=== PATIENT | female | born 1940 | race Caucasian/White ===

== ENCOUNTER 2018-09-29 02:03 | Outpatient (CLI) | payer MEDICARE, MEDICAID, SELFPAY ==
[2018-09-29 11:27] LABS: Hemoglobin A1C 7.8 % (4.5-6.2)
[2018-09-29 11:33] LABS: ALT 35 U/L (12-78); AST 42 U/L (15-37); Alkaline Phosphatase 81 U/L (46-116); Anion Gap 8.4 mmol/L (3-11); BUN 13 mg/dL (7-18); Bilirubin, Total 0.2 mg/dL (0.2-1.0); CO2 29.6 mmol/L (21.0-32.0); CREATININE 1.07 mg/dL (0.55-1.02); Calcium 9.3 mg/dL (8.5-10.1); Chloride 103 mmol/L (98-107); Cholesterol 203 mg/dL (50-200); Glucose 186 mg/dL (70-100); HDL Cholesterol 34 mg/dL (40-60); LDL CHOLESTEROL 123 mg/dL (<100); Potassium 4.3 mmol/L (3.5-5.1); Sodium 141 mmol/L (136-145); Total Protein 6.4 g/dL (6.4-8.2); Triglyceride 246 mg/dL (30-150)
== END 2018-09-29 02:23 ==
PROVIDERS: PCP Family Medicine; Visit Provider Family Medicine
DX: R07.9 Chest pain, unspecified (principal); E11.9 Type 2 diabetes mellitus without complications; R78.5 Finding of other psychotropic drug in blood; I10 Essential (primary) hypertension
CPT/HCPCS: 36415; 80053; 80061; 83721; 83036

== ENCOUNTER 2018-10-24 17:35 | Outpatient (REF) | payer MEDICARE, MEDICAID, SELFPAY ==
--- NOTE | 2018-10-24 16:30 | SKI_PTH ---
PATIENT: Ana Medel LOC: [facility] U#:[id number] AGE/SX: 78/F ROOM: RE10/24/[address]: Kenton Tillman MD : 1940 BED: DIS: 10/24/2018 SPEC #: [id number] RECD: 10/25/18 12:51 STATUS: ANITA REElizabeth #: [id number] JESSICA: 10/24/18 16:[address]: Kenton Tillman DEPT: Surgical Specimen RECD BY: Renetta Rojas Tissues: 1 - SKIN BIOPSY(SHAVE/PUNCH) Procedures: SKIN LEVEL 4 Comments: [id number]
== END 2018-10-24 17:55 ==
LOC: LBN 17:35
PROVIDERS: PCP Family Medicine; Visit Provider Family Medicine
DX: C44.629 Squamous cell carcinoma of skin of left upper limb, including shoulder (principal)
CPT/HCPCS: 88305

== ENCOUNTER 2019-01-31 15:47 | Emergency (ER) | payer MEDICARE, MEDICAID, SELFPAY ==
[2019-01-31 16:00] VITALS: BP 158/71; PULSE 68; RESP 16; TEMP 37; O2SAT 97
--- NOTE | 2019-01-31 16:08 | DI.RAD_ITS ---
SYMPTOM/DIAGNOSIS: SOB, ANTERIOR RT SHOULDER PAIN PA AND LATERAL CHEST: No localized infiltrate is demonstrated. There is some questionable increased density in the right infrahilar region. The lungs are otherwise unremarkable. There is no pleural effusion. The heart is not enlarged. No acute bony abnormality is demonstrated. SUMMARY: The questionable increased density in the right infrahilar region could conceivably represent an early pneumonitis. The examination is otherwise unremarkable. RIGHT SHOULDER: There is evidence of DJD with articular sclerosis and periarticular hypertrophic spurring. A small region of apparent calcification is identified adjacent to the greater tuberosity of the humerus. There is no evidence of an acute fracture or dislocation.
--- NOTE | 2019-01-31 16:14 | ED.GENADUL_ITS ---
Discharge Plan Disposition Patient Disposition: HOME Condition: Stable Discharge Details Chief Complaint: SOB Clinical Impression: Shortness of breath, Arthritis of right shoulder region Primary Care Provider: Kenton Tillman ED Provider: Aquiles Cormier Dufur Meds and New Rx's Prescriptions: New levofloxacin 750 mg tablet 750 mg PO DAILY Qty: 7 RF: 0 No Action Eliquis 5 mg tablet 5 mg PO BID Qty: 180 RF: 3 metformin 500 mg tablet 500 mg PO BID 90 Days Qty: 180 RF: 3 metoprolol succinate 50 mg tablet extended release 24 hr 50 mg PO DAILY Qty: 90 RF: 3 simvastatin [Zocor] 40 mg tablet 40 mg PO HS Qty: 90 RF: 4 trazodone 100 mg tablet 100 mg PO HS Qty: 90 RF: 12 ipratropium bromide 0.02 % solution 3 ml Inhalation ONCE Qty: 3 RF: 0 glipizide 5 mg tablet extended release 24hr 10 mg PO DAILY Qty: 90 RF: 12 benzonatate 200 mg capsule 200 mg PO TID PRN (Reason: cough) Qty: 30 RF: 0 levofloxacin 500 mg tablet 500 mg PO DAILY Qty: 7 RF: 0 albuterol sulfate [Ventolin HFA] 90 mcg/actuation HFA aerosol inhaler 1 - 2 puff IH Q4H PRN (Reason: shortness of breath or wheezing) Qty: 8.5 RF: 0 Aerochamber MV spacer .ROUTE .MEDSUPPLY Qty: 1 RF: 0 TEST STRIPS 1 EACH strip 1 ea Miscellaneous TID Qty: 300 RF: 4 acetaminophen [Tylenol Extra Strength] 500 MG tablet 2 tab PO Q4H PRN RF: 0 cpap RF: 0 Blood Glucose Test 1 EACH strip 1 ea Miscellaneous TID Qty: 400 RF: 12 lancets 1 EACH misc 1 ea Miscellaneous TID Qty: 300 RF: 4 omeprazole 20 MG capsule,delayed release(DR/EC) 20 mg PO DAILY Qty: 90 RF: 4 losartan [Cozaar] 100 mg tablet 100 mg PO QAM Qty: 90 RF: 3 metoclopramide HCl 10 mg tablet 10 mg PO QID Qty: 120 RF: 5 furosemide 20 mg tablet 20 mg PO DAILY Qty: 90 RF: 12 fluoxetine 20 mg capsule 20 mg PO DAILY Qty: 90 RF: 4 sennosides [Senna Lax] 8.6 mg tablet 8.6 - 17.2 mg PO BID PRN (Reason: constipation) Qty: 180 RF: 0 tolterodine [Detrol LA] 4 mg capsule,extended release 24hr 4 mg PO DAILY Qty: 90 RF: 12 multivitamin 1 EACH capsule 1 cap PO DAILY RF: 0 Discharge Instructions Additional Instructions: Star taking 40mg of lasix daily. Take 20mg when you get home and then 40mg every morning If you develop a severe worsening cough with fever you can fill the antibiotic prescription return to the emergency department if you feel you are becoming more ill, more short of breath or new symptoms such as chest pain/pressure Medical Decision Making 78 yo female with hx of afib on eliquis, leg edema on lasix, dm, htn, who comes in with chief complaint of shortness of breath. She was tx'd with levofloxacin for pna diagnosed clinically at his pcp's office in the beginning of this month. her cough she had cleared but she continues to have shortness of breath. She states she has also had increased leg swelling. Denies calf pain and denies any chest pain or pressure. She is in no distress on exam speaking in full sentences. She has no hypoxia, tachycardia, and on exam has mild crackles at the bases otherwise clear lungs and no murmurs. Will obtain ecg and troponin to evaluate for possible nstemi but unlikely given lack of chest pain. no hypoxia, tachycardia or evidence of dvt so doubt PE .Will also obtain xray to eval for infiltrate vs edema. She has had pain in her right shoulder for months and states she had a previous rotator cuff repair. Has full rom and pain with palpation to the anterior shoulder, no warmth or swelling or redness and no fevers so doubt septic joint. will xray to eval for possible pathological fx pt remains stable, on shoulder xray has no acute findings, does have chronic changes that I advised her to f/u with pcp about for mri if needed. Her labs show no acute findings, xray unclear if it shows pna or not. She has no productive cough and no fevers so do not feel abx indicated at this time. I feel this could be related to mild volume overload given elevated probnp and pitting leg edema. She is hd stable for outpatient management. I am going to have her increase her lasix to 40mg daily from 20mg and she will f/u with her pcp within a week and return if worsening family requested to have a prescription for an antibiotic in case she does develop symptoms of a pna, will provide this but gave them clera instructions on when to fill it and that she should be seen if she does fill it Differential Diagnosis chf, acs, pulmonary edema, bronchitis Imaging Data Radiologic Study: Attestation: I personally reviewed and interpreted this imaging study as follows: Imaging: X-Ray Radiologist's impression: IMPRESSION: 1. 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 2. Concern for chronic acromioclavicular injury. 3. No acute skeletal pathology is grossly noted. 4. Consider further evaluation with MRI if patient continues with clinical symptoms. Radiologic Study #2: Attestation: I personally reviewed and interpreted this imaging study as follows: Imaging: X-Ray Radiologist's impression: IMPRESSION: Mild haziness in the right infrahilar region could be related to crowding of bronchovascular structures versus developing airspace disease in the appropriate clinical setting. There is mild segmental bronchial wall thickening of the bilateral infrahilar regions, in which acute bronchitis is a possibility as well. Lab Data Lab results reviewed: Yes I reviewed the patient's lab results. ECG Data Attestation: I personally reviewed and interpreted this ECG (s) as follows: Prior ECG tracings: available for review Interpretation: sinus rhythm, rate of 65, left axis anterior fasciuclar block, no acute st t wave ischemic changes HPI General Mode of arrival: ambulatory . Date/Time Provider Initiated Documentation: 01/31/19 16:02 . Limitations to Documentation: no limitations . Information obtained by: patient . History of Present Illness 78 year old F presents to the emergency department with the chief complaint of shoft of breath, described as mild, Patient started experiencing this week(s) (2) and it has been constant. Rest improves symptom(s), Movement worsens symptoms . Patient did receive the following treatments prior to arrival, none Related Data Home Medications Medication Instructions Recorded Confirmed multivitamin 1 cap PO DAILY 03/13/14 01/31/19 acetaminophen [Tylenol Extra 2 tab PO Q4H PRN 04/03/14 01/31/19 Strength] blood sugar diagnostic [Blood #400 strip 01/25/18 01/18/19 Glucose Test Strip] lancets #300 ea 01/25/18 01/18/19 omeprazole 20 mg PO DAILY #90 tab-cap 03/07/18 01/31/19 losartan 100 mg tablet 100 mg PO QAM #90 tab-cap 08/12/18 01/31/19 metoclopramide 10 mg tablet 10 mg PO QID #120 tab 08/12/18 01/31/19 furosemide 20 mg tablet 20 mg PO DAILY #90 tab-cap 08/22/18 01/31/19 apixaban 5 mg tablet 5 mg PO BID #180 tab 09/21/18 01/31/19 metformin 500 mg tablet 500 mg PO BID 90 Days #180 tab-cap 09/21/18 01/31/19 metoprolol succinate ER 50 mg 50 mg PO DAILY #90 tab 09/21/18 01/31/19 tablet,extended release 24 hr simvastatin 40 mg tablet 40 mg PO HS #90 tab-cap 09/21/18 01/31/19 trazodone 100 mg tablet 100 mg PO HS #90 tab 09/21/18 01/31/19 fluoxetine 20 mg capsule 20 mg PO DAILY #90 tab-cap 10/27/18 01/31/19 sennosides 8.6 mg tablet 8.6 - 17.2 mg PO BID PRN #180 01/10/19 01/31/19 tab-cap tolterodine ER 4 mg 4 mg PO DAILY #90 tab-cap 01/10/19 01/31/19 capsule,extended release 24 hr albuterol sulfate HFA 90 1 - 2 puff IH Q4H PRN #8.5 gm 01/16/19 01/31/19 mcg/actuation aerosol inhaler benzonatate 200 mg capsule 200 mg PO TID PRN #30 cap 01/16/19 01/31/19 glipizide ER 5 mg tablet, extended 10 mg PO DAILY #90 tab-cap 01/16/19 01/31/19 release 24 hr inhalational spacing device #1 each 01/16/19 01/18/19 levofloxacin 500 mg tablet 500 mg PO DAILY #7 tab 01/16/19 01/31/19 levofloxacin 750 mg PO DAILY #7 tab 01/31/19 Previous Rx's Medication Instructions Recorded blood sugar diagnostic [Blood #400 strip 01/25/18 Glucose Test Strip] lancets #300 ea 01/25/18 omeprazole 20 mg PO DAILY #90 tab-cap 03/07/18 losartan 100 mg tablet 100 mg PO QAM #90 tab-cap 08/12/18 metoclopramide 10 mg tablet 10 mg PO QID #120 tab 08/12/18 furosemide 20 mg tablet 20 mg PO DAILY #90 tab-cap 08/22/18 apixaban 5 mg tablet 5 mg PO BID #180 tab 09/21/18 metformin 500 mg tablet 500 mg PO BID 90 Days #180 tab-cap 09/21/18 metoprolol succinate ER 50 mg 50 mg PO DAILY #90 tab 09/21/18 tablet,extended release 24 hr simvastatin 40 mg tablet 40 mg PO HS #90 tab-cap 09/21/18 trazodone 100 mg tablet 100 mg PO HS #90 tab 09/21/18 fluoxetine 20 mg capsule 20 mg PO DAILY #90 tab-cap 10/27/18 sennosides 8.6 mg tablet 8.6 - 17.2 mg PO BID PRN #180 01/10/19 tab-cap tolterodine ER 4 mg 4 mg PO DAILY #90 tab-cap 01/10/19 capsule,extended release 24 hr albuterol sulfate HFA 90 1 - 2 puff IH Q4H PRN #8.5 gm 01/16/19 mcg/actuation aerosol inhaler benzonatate 200 mg capsule 200 mg PO TID PRN #30 cap 01/16/19 glipizide ER 5 mg tablet, extended 10 mg PO DAILY #90 tab-cap 01/16/19 release 24 hr inhalational spacing device #1 each 01/16/19 levofloxacin 500 mg tablet 500 mg PO DAILY #7 tab 01/16/19 levofloxacin 750 mg PO DAILY #7 tab 01/31/19 Allergies Allergy/AdvReac Type Severity Reaction Status Date / Time codeine AdvReac Intermediate Unverified 01/31/19 16:02 ibuprofen AdvReac Unknown EDEMA Unverified 01/31/19 16:02 propoxyphene AdvReac Unknown NAUSEA/VOMI Unverified 01/31/19 16:02 TING General Stated Complaint: SOB ELEAZAR: 3 Review of Systems Review of Systems All systems reviewed & are unremarkable except as noted in HPI and below Constitutional Denies chills and Denies fever(s) ENT Denies change in voice Cardiovascular Denies chest pain Respiratory Denies cough Gastrointestinal Denies abdominal pain, Denies nausea and Denies vomiting Musculoskeletal Denies joint swelling Integumentary/Breasts Denies rash [facility] Medical History Atrial fibrillation Quinones esophagus DM (diabetes mellitus) Essential (primary) hypertension GERD (gastroesophageal reflux disease) Gastric motor function disorder Hiatal hernia KEILY (obstructive sleep apnea) Surgical History Arthroplasty of knee CERVICAL SPINE X-RAY (04/16/08) Cholecystectomy (01/19/18) PROCEDURES Replacement of total knee joint (~05/2001) Rotator Cuff Repair (~1997) Social History Smoking/Tobacco Use Status: Never Drug use: Never Do you feel safe in your relationship?: Yes Exam Const General: no acute distress Orientation: alert HENMT Head: normal to inspection Ears: external ears normal General nose exam: external nose normal Mouth: moist mucous membranes Eyes General: appearance normal, both eyes and all related structures Neck Neck: normal visual inspection Resp Effort & Inspection: normal respiratory effort and able to speak in complete sentences Cardio Rate: regular rate Skin General skin exam: no rashes or lesions noted Neuro General: alert and oriented x3 Extrem General: normal to inspection Psych Mental Status: mental status grossly normal Course Vital Signs Temperature 37 C 01/31/19 16:00 Pulse 68 01/31/19 16:00 Respiratory Rate 16 01/31/19 16:00 Blood Pressure 158/71 H 01/31/19 16:00 Pulse Oximetry 97 01/31/19 16:00 Temperature 37 C 01/31/19 16:00 Temperature Source Skin 01/31/19 16:00 Pulse 68 01/31/19 16:00 Respiratory Rate 16 01/31/19 16:00 Respiratory Effort Non-Labored 01/31/19 16:00 Blood Pressure 158/71 H 01/31/19 16:00 Blood Pressure Position Sitting 01/31/19 16:00 Pulse Oximetry 97 01/31/19 16:00 Oxygen Delivery Method Room Air 01/31/19 16:00 Oxygen Flow Rate 0 01/31/19 16:00 Pain Level 0 01/31/19 16:00
[2019-01-31 16:47] LABS: Abs Immature Grans 0.02 k/cumm (0.0-0.09); Absolute Basophil Count 0.04 k/cumm (0.0-0.2); Absolute Eosinophil Count 0.17 k/cumm (0.0-0.7); Absolute Monocyte Count 0.61 k/cumm (0.11-0.7); Absolute Neutrophil Count 6.26 k/cumm (1.2-6.7); Basophils % 0.4; Eosinophils % 1.8; HCT 36.4 % (36.0-46.0); HGB 11.2 g/dL (12.0-15.5); Immature Grans % 0.2; Lymphocytes % 25.3; Mean Corp. HGB Concentration 30.8 g/dL (32.0-36.0); Mean Corpuscular Hemoglobin 27.1 pg (27.0-33.0); Mean Corpuscular Volume 87.9 fL (80-95); Mean Platelet Volume 10.2 fL (8.0-11.0); Monocytes % 6.4; Neutrophils % 65.9; Platelet Count 282 x1000/uL (130-400); RBC 4.14 m/cumm (4.00-5.20); RBC Distribution Width 15.4 % (11.7-14.6)
[2019-01-31 17:11] LABS: ALT 23 U/L (12-78); AST 30 U/L (15-37); Albumin 3.2 g/dL (3.4-5.0); Alkaline Phosphatase 88 U/L (46-116); Anion Gap 9.7 mmol/L (3-11); BUN 18 mg/dL (7-18); Bilirubin, Total 0.3 mg/dL (0.2-1.0); CO2 28.3 mmol/L (21.0-32.0); CREATININE 1.12 mg/dL (0.55-1.02); Calcium 9.2 mg/dL (8.5-10.1); Chloride 99 mmol/L (98-107); Estimated GFR 47.05 (mL/min/1.73m2); Glucose 161 mg/dL (70-100); NT-proBNP 829 pg/mL; Potassium 4.2 mmol/L (3.5-5.1); Sodium 137 mmol/L (136-145); Total Protein 7.5 g/dL (6.4-8.2)
[2019-01-31 17:12] LABS: Troponin I < 0.02 ng/mL (0.00-0.06)
--- NOTE | 2019-01-31 17:58 | DI.VRAD_ITS ---
EXAM: XR Right Shoulder, Complete, 2 or More Views EXAM DATE/TIME: 01/31/2019 4:10 PM CLINICAL HISTORY: 78 years old, female; Signs and symptoms; Other: Pain in anterior right shoulder TECHNIQUE: Imaging protocol: XR Right shoulder, complete 2 or more views. COMPARISON: No relevant prior studies available. FINDINGS: Bones/joints: There is increased acromioclavicular distance. There are degenerative changes at the glenohumeral joint, as manifested by subchondral sclerosis, marginal osteophyte formation, and subchondral cyst formation. No acutely displaced fracture or dislocation. Soft tissues: There are prominent calcifications at the expected insertion of the supraspinatus tendon. No significant soft tissue swelling. Visualized chest appears unremarkable. IMPRESSION: 1. 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 2. Concern for chronic acromioclavicular injury. 3. No acute skeletal pathology is grossly noted. 4. Consider further evaluation with MRI if patient continues with clinical symptoms. Dictated and Authenticated by: Samson Oliveros MD. Ordering:GUNNAR Kwan MD
--- NOTE | 2019-01-31 18:00 | DI.VRAD_ITS ---
EXAM: XR Chest, 2 Views EXAM DATE/TIME: 01/31/2019 4:10 PM CLINICAL HISTORY: 78 years old, female; Signs and symptoms; Other: Shortness of breath TECHNIQUE: Imaging protocol: XR of the chest, 2 views. COMPARISON: CR CHEST 2 VIEWS PA,LAT 03/15/2018 3:34 PM FINDINGS: Lungs: There is mild haziness in the right infrahilar region. Mild segmental bronchial wall thickening is noted. Remainder of the lungs appear grossly clear. Pleural space: Unremarkable. No pleural effusion. No pneumothorax. Heart/Mediastinum: Stable cardiomediastinal silhouette. Bones/joints: No acute skeletal abnormality. IMPRESSION: Mild haziness in the right infrahilar region could be related to crowding of bronchovascular structures versus developing airspace disease in the appropriate clinical setting. There is mild segmental bronchial wall thickening of the bilateral infrahilar regions, in which acute bronchitis is a possibility as well. Dictated and Authenticated by: Samson Oliveros MD. Ordering:GUNNAR Kwan MD
[2019-01-31 18:10] VITALS: RESP 18
[2019-01-31 18:17] VITALS: BP 118/58; PULSE 67; RESP 16; O2SAT 94
== END 2019-01-31 18:21 | disposition home or self-care (01) ==
PROVIDERS: Emergency Provider Emergency Medicine; PCP Family Medicine
DX: R06.02 Shortness of breath (principal); M13.811 Other specified arthritis, right shoulder; I48.91 Unspecified atrial fibrillation; Z79.01 Long term (current) use of anticoagulants
CPT/HCPCS: 36415; 80053; 93005; 99285; 71046; 73030; 83880; 84484; 85025; 93010

== ENCOUNTER 2019-12-25 01:48 | Outpatient (CLI) | payer MEDICARE, SELFPAY ==
[2019-12-25 15:58] LABS: Hemoglobin A1C 8.4 % (3.8-5.6)
[2019-12-25 16:01] LABS: Anion Gap 9.9 mmol/L (3-11); BUN 15 mg/dL (7-18); CO2 29.1 mmol/L (21.0-32.0); CREATININE 1.48 mg/dL (0.55-1.02); Calcium 9.2 mg/dL (8.5-10.1); Chloride 102 mmol/L (98-107); Estimated GFR 34.02 (mL/min/1.73m2); Glucose 197 mg/dL (74-106); Potassium 4.1 mmol/L (3.5-5.1); Sodium 141 mmol/L (136-145)
== END 2019-12-25 02:08 ==
PROVIDERS: PCP Family Medicine; Visit Provider Family Medicine
DX: E87.5 Hyperkalemia (principal); E11.9 Type 2 diabetes mellitus without complications; D49.2 Neoplasm of unspecified behavior of bone, soft tissue, and skin
CPT/HCPCS: 36415; 80048; 83036

== ENCOUNTER 2020-11-13 02:52 | Outpatient (CLI) | payer MEDICARE, SELFPAY ==
[2020-11-13 12:31] LABS: HCT 32.7 % (36.0-46.0); HGB 9.6 g/dL (11.2-15.7); MCH 24.9 pg (27.0-33.0); MCHC 29.4 % (32.0-36.0); MCV 84.9 fL (80-95); MPV 10.4 fL (8.0-11.0); Platelet Count 306 10^3/uL (130-400); RBC 3.85 10^6/uL (3.93-5.22); RDW 16.8 % (11.7-14.6); WBC 7.25 10^3/uL (4.4-10.8)
[2020-11-13 12:35] LABS: Bilirubin Negative (Negative); Blood Negative (Negative); Clarity Clear (Clear); Glucose Negative (Negative); Ketones Negative (Negative); Leukocyte Esterase Negative (Negative); Nitrite Negative (Negative); Specific Gravity 1.015 (1.005-1.025); Urobilinogen 0.2 EU/dL (Up TO 0.2)
[2020-11-13 13:26] LABS: COMMENT (LAB VIEW ONLY) 129.19 mg/dL; Microalb ug/mg Crea 3.1 ug/mg Cr
[2020-11-13 13:31] LABS: ALT 26 U/L (14-59); AST 32 U/L (15-37); Albumin 3.3 g/dL (3.4-5.0); Alkaline Phosphatase 82 U/L (46-116); Anion Gap 6.8 mmol/L (3-11); BUN 16 mg/dL (7-18); Bilirubin, Total 0.3 mg/dL (0.2-1.0); CO2 29.2 mmol/L (21.0-32.0); CREATININE 1.35 mg/dL (0.55-1.02); Calcium 9.4 mg/dL (8.5-10.1); Chloride 102 mmol/L (98-107); Estimated GFR 37.73 (mL/min/1.73m2); Glucose 185 mg/dL (74-106); Sodium 138 mmol/L (136-145); Total Protein 6.9 g/dL (6.4-8.2)
[2020-11-13 13:49] LABS: Hemoglobin A1C 7.8 % (<5.7)
== END 2020-11-13 03:12 ==
PROVIDERS: PCP Family Medicine; Visit Provider Family Medicine
DX: E11.9 Type 2 diabetes mellitus without complications (principal); I10 Essential (primary) hypertension; E03.9 Hypothyroidism, unspecified; D50.9 Iron deficiency anemia, unspecified; I48.91 Unspecified atrial fibrillation; R11.0 Nausea; K31.89 Other diseases of stomach and duodenum
CPT/HCPCS: 36415; 80053; 85027; 81003; 82043; 82570; 83036

== ENCOUNTER 2021-11-10 03:50 | Outpatient (CLI) | payer MEDICARE, MEDICAID, SELFPAY ==
[2021-11-10 14:57] LABS: ALT 29 U/L (14-59); AST 29 U/L (15-37); Albumin 3.3 g/dL (3.4-5.0); Alkaline Phosphatase 73 U/L (46-116); Anion Gap 6.4 mmol/L (3-11); BUN 16 mg/dL (7-18); Bilirubin, Total 0.3 mg/dL (0.2-1.0); CO2 29.6 mmol/L (21.0-32.0); CREATININE 1.4 mg/dL (0.55-1.02); Calcium 9.3 mg/dL (8.5-10.1); Chloride 100 mmol/L (98-107); Estimated GFR 36.09 (mL/min/1.73m2); Glucose 183 mg/dL (74-106); Potassium 4.2 mmol/L (3.5-5.1); Sodium 136 mmol/L (136-145); Total Protein 6.9 g/dL (6.4-8.2)
== END 2021-11-10 03:51 | disposition home or self-care (01) ==
LOC: LBO 03:50
PROVIDERS: PCP Nurse Practitioner Family; Visit Provider Nurse Practitioner Family
DX: I10 Essential (primary) hypertension (principal)
CPT/HCPCS: 36415; 80053

== ENCOUNTER 2022-01-06 10:31 | Emergency (ER) | payer MEDICARE, MEDICAID, SELFPAY ==
[2022-01-06 10:45] VITALS: BP 128/97; PULSE 55; RESP 22; TEMP 36.1; O2SAT 98
--- NOTE | 2022-01-06 11:00 | DI.CT_ITS ---
Exam(s) CT BRAIN NECK CTA EXAM: CT BRAIN NECK CTA CLINICAL HISTORY: dizziness, neck injury. TECHNIQUE: Imaging Protocol: Axial CT angiography was performed with multi-slice acquisition and mu lti-planar and/or 3D reconstructions. CONTRAST MATERIAL: Intravenous: Omnipaque 350 Contrast volume:structured data in ml COMPARISON: CT ABD PELVIS WITH CONTRAST from 01/06/2018 FINDINGS: CT Head W/O and W contrast: Ventricles and Extra axial spaces: Normal in size and morphology for the patient's age. Hemorrhage: None. Cerebral parenchyma: Normal. Midline shift: None. Brainstem/Cerebellum: Normal. Calvarium: Normal. Visualized Paranasal sinuses/Mastoids: Clear. Soft Tissues: Skin calcifications. Enhancement: Normal. CTA Brain W: Internal Carotid Arteries: Petrous: Normal. Cavernous: Normal. Cerebral: Normal. Middle Cerebral Arteries: Right: No aneurysm, occlusion or significant stenosis. Left: No aneurysm, occlusion or significant stenosis. Anterior Cerebral Arteries: Right: No aneurysm, occlusion or significant stenosis. Left: No aneurysm, occlusion or significant stenosis. Posterior cerebral Arteries: Right: No aneurysm, occlusion or significant stenosis. Left: No aneurysm, occlusion or significant stenosis. Vertebral Arteries: Right: Diminutive in caliber. No aneurysm, occlusion or significant stenosis. Left: Dominant. No aneurysm, occlusion or significant stenosis. Basilar Artery: No aneurysm, occlusion or significant stenosis. CTA Neck W: Exam is limited by the patient's body habitus. Common Carotid: Right: No aneurysm, occlusion or significant stenosis. Left: No aneurysm, occlusion or significant stenosis. External Carotid: Right: No aneurysm, occlusion or significant stenosis. Left: No aneurysm, occlusion or significant stenosis. Internal Carotid: Right: No aneurysm, occlusion or significant stenosis. Left: No aneurysm, occlusion or significant stenosis. Vertebral Artery: Right: Diminutive in caliber. No aneurysm, occlusion or significant stenosis. Left: Dominant. No aneurysm, occlusion or significant stenosis. Lung Apices: Normal. Bones: Degenerative changes are noted in the spine. No evidence of fracture. Soft Tissues: Normal. IMPRESSION: 1. Normal CTA examination of the [place]. 2. Unremarkable CT Head. 3. Normal CTA examination of the neck. Exam is limited by patient body habitus. RADIATION DOSE DELIVERED: 2,090.16mGy.cm Total DLP 2,090.16mGy.cm Total DLP DATA REPOSITORY: All CT scans at this facility are submitted to the National Radiology Data Registry (NRDR) Dose Index Registry (DIR) with the [employer] ([employer]). RADIATION OPTIMIZATION: All CT scans at this facility use at least one of these dose optimization te chniques: automated exposure control; mA and/or kV adjustment per patient size (includes targeted exa ms where dose is matched to clinical indication); or iterative reconstruction.
--- NOTE | 2022-01-06 11:00 | RT.EKG_ITS ---
APPROVED REPORT Exam: Resting ECG Reason for Exam: dizziness Patient Location: E HR:60 bpm ECG Measurements Heart Rate 60 AXIS MT [id number] P [id number] QRSd 117 QRS -52 QT 443 T -9 QTc 442 Conclusion Junctional rhythm...absent P waves, slow V-rate Left anterior fascicular block...axis(240,-40), init forces inf Low voltage, precordial leads...precordial leads <1.0mV sinus rhythm, left axis, t wave inversions III aVF
--- NOTE | 2022-01-06 11:29 | DI.CT_ITS ---
Exam(s) CT CHEST/ABD/PEL W CT THORACIC SPINE RECONS EXAM: CT CHEST/ABD/PEL W CLINICAL HISTORY: fall, back injury ,chest pain. TECHNIQUE: Imaging Protocol: Axial computed tomography images with coronal and sagittal reformatted images were created and reviewed CONTRAST MATERIAL: Intravenous: Omnipaque 350 Contrast volume:70 ml Oral: no COMPARISON: CT ABD PELVIS WITH CONTRAST from 01/06/2018 CR XR CHEST 2V PA LATERAL from 01/31/[address] THORACIC SPINE RECONS from 01/06/[address] BRAIN NECK CTA from 01/06/2022 FINDINGS: CHEST: Tracheobronchial tree: Patent where visualized. Mediastinum and Mara: No dominant adenopathy or fluid collection. Moderate size hiatal hernia. Pulmonary parenchyma: No consolidation or dominant measurable mass. Pleura: No effusion or pneumothorax. Lymph nodes: Within normal limits. Aorta: Thoracic portion non-dilated. Heart: Normal size. Coronary artery calcifications. Bones: The bones appear osteoporotic, limiting evaluation for lytic or blastic lesions. There is a q uestion of areas of lucency within multiple ribs.. No displaced rib fractures are seen. There are t here are apparent mild rib deformities inferiorly on the left which could represent old rib fractures . No spine fracture. Degenerative changes and scoliosis are noted. ABDOMEN: Liver: Normal density. No measurable mass. Gallbladder and biliary tract: Status post cholecystectomy. No radiodense calculus or dilation. Pancreas: Normal density, no abnormal calcifications or inflammatory process. Spleen: Normal. Kidneys: Normal size, contour and axis. No radiodense stones or obstructive uropathy. No masses seen. Adrenal glands: No masses seen. Aorta: Abdominal portion non-dilated. Atherosclerotic changes. Lymph nodes: Within normal limits. Soft tissues: Unremarkable. Stomach and bowel: Diverticulum of the descending duodenum. PELVIS: Bladder: Symmetric distention, no gross wall thickening. Bowel: Mild diverticulosis. Large quantity of stool in the rectum. No obstruction or bowel wall thi ckening. Peritoneal cavity: No ascites, collection or mesenteric inflammatory response. Bones: The bones appear osteoporotic. Degenerative changes in the spine and hips. No evidence of fr acture. Reproductive organs: Within normal limits. Soft tissues: Diffuse muscular atrophy. IMPRESSION: No acute abnormality in the chest abdomen or pelvis.. Bones appear osteoporotic. There is question of lytic lesions involving ribs versus osteoporotic mot tling. No acute fracture is seen in the chest abdomen or pelvis. Results of this exam have been verbally communicated with a department provider. RADIATION DOSE DELIVERED: 2004.74 mGy.cm Total DLP DATA REPOSITORY: All CT scans at this facility are submitted to the National Radiology Data Registry (NRDR) Dose Index Registry (DIR) with the [employer] (ACR). RADIATION OPTIMIZATION: All CT scans at this facility use at least one of these dose optimization te chniques: automated exposure control; mA and/or kV adjustment per patient size (includes targeted exa ms where dose is matched to clinical indication); or iterative reconstruction.
[2022-01-06 11:33] LABS: Abs Immature Grans 0.02 10^3/uL (0.0-0.06); Absolute Basophil Count 0.03 10^3/uL (0.0-0.2); Absolute Eosinophil Count 0.14 10^3/uL (0.0-0.7); Absolute Lymphocyte Count 1.65 10^3/uL (1.2-3.4); Absolute Monocyte Count 0.47 10^3/uL (0.1-0.8); Absolute Neutrophil Count 3.87 10^3/uL (1.2-6.7); Basophils % 0.5; Eosinophils % 2.3; HCT 29.6 % (36.0-46.0); HGB 9.1 g/dL (11.2-15.7); Immature Grans % 0.3; Lymphocytes % 26.7; MCH 28.8 pg (27.0-33.0); MCHC 30.7 % (32.0-36.0); MCV 93.7 fL (80-95); MPV 9.8 fL (8.0-11.0); Monocytes % 7.6; Neutrophils % 62.6; Nucleated RBC 0 %; Platelet Count 231 10^3/uL (130-400); RBC 3.16 10^6/uL (3.93-5.22); RDW 15.3 % (11.7-14.6); RDW-SD 52.9 fL; WBC 6.18 10^3/uL (4.4-10.8)
[2022-01-06] MEDS: Meclizine 25 MG TAB PO (11:40)
[2022-01-06 11:55] LABS: ALT 23 U/L (14-59); AST 27 U/L (15-37); Alkaline Phosphatase 61 U/L (46-116); Anion Gap 7.9 mmol/L (3-11); BUN 19 mg/dL (7-18); Bilirubin, Total 0.3 mg/dL (0.2-1.0); CO2 25.1 mmol/L (21.0-32.0); CREATININE 1.3 mg/dL (0.55-1.02); Calcium 9.1 mg/dL (8.5-10.1); Chloride 106 mmol/L (98-107); Estimated GFR 39.31 (mL/min/1.73m2); Glucose 167 mg/dL (74-106); Magnesium 1.6 mg/dL (1.8-2.4); Potassium 4.6 mmol/L (3.5-5.1); Sodium 139 mmol/L (136-145); Total Protein 6.5 g/dL (6.4-8.2); Troponin I < 50 ng/L (<or=60)
--- NOTE | 2022-01-06 12:09 | ED.GENADUL_ITS ---
Discharge Plan Disposition Patient Disposition: HOME Condition: Stable Discharge Details Clinical Impression: Chest wall contusion, Hypomagnesemia, Dizziness Primary Care Provider: Hakeem Wheeler ED Provider: Renetta Keith Home Meds and New Rx's Prescriptions: New magnesium 250 mg tablet 250 mg PO DAILY Qty: 7 0RF meclizine 25 mg tablet 25 mg PO TID Qty: 10 0RF lidocaine [Lidocaine Pain Relief] 4 % adhesive patch,medicated 1 patch topical DAILY PRNQty: 10 0RF Continued sennosides [Senna Lax] 8.6 mg tablet 8.6 - 17.2 mg PO BID PRN (Reason: constipation) Qty: 180 0RF omeprazole 20 mg capsule,delayed release(DR/EC) 20 mg PO BID Qty: 180 3RF albuterol sulfate [Ventolin HFA] 90 mcg/actuation HFA aerosol inhaler 1 - 2 puff IH Q4H PRN (Reason: shortness of breath or wheezing) Qty: 8.5 0RF (DME) Aerochamber MV spacer See Dose Instructions .ROUTE .MEDSUPPLY Qty: 1 0RF Dose Instruction: As directed Rx Instructions: As directed TEST STRIPS 1 EACH strip 1 ea Miscellaneous TID Qty: 300 4RF Rx Instructions: FOR ONE TOUCH ULTRA MINI Dx 250.02 Taking Lantus and Novolog acetaminophen [Tylenol Extra Strength] 500 MG tablet 2 tab PO Q4H PRN 0RF cpap 0RF (DME) lancets 1 EACH misc 1 ea Miscellaneous TID Qty: 300 4RF Rx Instructions: FOR ONE TOUCH ULTRA MINI GLUCOMETER Dx E11.9 Taking Lantus and Novolog Eliquis 5 mg tablet 5 mg PO BID Qty: 180 3RF fluoxetine 20 mg capsule 20 mg PO DAILY Qty: 90 4RF trazodone 100 mg tablet 100 mg PO HS Qty: 90 4RF metformin 500 mg tablet 1,000 mg PO BID 90 Days Qty: 360 3RF Rx Instructions: NEW DOSE furosemide 20 mg tablet 40 mg PO DAILY Qty: 90 3RF Rx Instructions: HAS BEEN TAKING FOR OVER 6MO, 40MG DOSE. simvastatin [Zocor] 40 mg tablet 40 mg PO HS Qty: 90 4RF tolterodine [Detrol LA] 4 mg capsule,extended release 24hr 4 mg PO DAILY Qty: 90 12RF losartan [Cozaar] 100 mg tablet 100 mg PO QAM Qty: 90 3RF (DME) Blood Glucose Test Strip 1 ea Miscellaneous TID Qty: 400 12RF Rx Instructions: FOR_one touch METER. PT USES INSULIN. TESTS TID DIAGNOSIS CODE _E11.9 On insulin metoprolol succinate 50 mg tablet extended release 24 hr 50 mg PO DAILY Qty: 90 3RF glipizide 5 mg tablet extended release 24 hr 5 mg PO BID Qty: 180 4RF multivitamin 1 EACH capsule 1 cap PO DAILY 0RF Discharge Instructions Additional Instructions: Take meclizine as needed for dizziness If your symptoms do not improve with this, he should return for reassessment Take magnesium as prescribed as your magnesium is slightly low Use Lidoderm patch, 12 hours on, 12 hours off Please return should you have any new or worsening complaints Be sure that you are taking at least 6 deep breaths in and exhale completely daily Please return earlier should he have any worsening complaints including fever chills, more frequent falls, Recheck with your primary care physician in 48 hours Referrals: Hakeem Wheeler [employer] [Primary Care Provider] - Discharge Data Discharge Date/Time-TO BE ENTERED AT DEPARTURE: 01/06/22 14:27 Medical Decision Making Patient is alert and oriented, she is complaining of spitting sensation History of diagnosed vertigo which feels similar. Given meclizine with improvement Because of her recent neck injury with dizziness I did order CTA which does not show acute abnormality per radiology interpretation in my review CT chest abdomen and pelvis did not show acute pathology per radiology int erpretation in my review Patient feeling symptomatically improved after 500 cc of fluid, meclizine, she is ambulatory with steady gait anything stable for discharge home She will continue to take deep breaths Return precautions discussed and patient expressed understanding Patient is otherwise is well in appearance She discharged home in stable condition with stable vitals Return precautions discussed and patient expressed understanding Medical Records Medical records reviewed: Yes I reviewed the patient's medical records. Lab Data Lab results reviewed: Yes I reviewed the patient's lab results. HPI General Date/Time Provider Initiated Documentation: 01/06/22 10:40 . HPI Narrative: This 81-year-old female with history of pneumonia type 2 diabetes, hypertension, hyperlipidemia presents for report of left posterior chest wall pain and dizziness. Patient states she has a history of dizziness and has been previously diagnosed with vertigo. She states this feels the same as waxing and waning. He presents today secondary to persistent left lower pain that radiates into her leg. She denies any chest pain or shortness of breath. She denies any weakness. She states that she had a fall approximately 2 weeks ago. She fell over the arm of the chair when she lost her balance which is not unusual for her. She landed on her buttocks. This fall was from standing. Denies any additional complaints at this time. states pain is exacerbated with deep breathing. Related Data Home Medications Medication Instructions Recorded Confirmed multivitamin 1 cap PO DAILY 03/13/14 11/19/21 acetaminophen 500 mg tablet 2 tab PO Q4H PRN 04/03/14 11/19/21 (Tylenol Extra Strength) lancets 26 gauge #300 ea 01/25/18 11/19/21 albuterol sulfate 90 mcg/actuation 1 - 2 puff IH Q4H PRN #8.5 gm 01/16/19 11/19/21 aerosol inhaler (Ventolin HFA) inhalational spacing device #1 each 01/16/19 11/19/21 (Aerochamber MV) sennosides 8.6 mg tablet (Senna 8.6 - 17.2 mg PO BID PRN #180 01/09/20 11/19/21 Lax) tab-cap apixaban 5 mg tablet (Eliquis) 5 mg PO BID #180 tab 10/01/20 11/19/21 fluoxetine 20 mg capsule 20 mg PO DAILY #90 tab-cap 11/06/20 11/19/21 trazodone 100 mg tablet 100 mg PO HS #90 tab 11/06/20 11/19/21 metformin 500 mg tablet 1,000 mg PO BID 90 Days #360 01/15/21 11/19/21 tab-cap furosemide 20 mg tablet 40 mg PO DAILY #90 tab-cap 07/03/21 11/19/21 simvastatin 40 mg tablet (Zocor) 40 mg PO HS #90 tab-cap 07/03/21 11/19/21 tolterodine 4 mg capsule,extended 4 mg PO DAILY #90 tab-cap 07/03/21 11/19/21 release 24 hr (Detrol LA) losartan 100 mg tablet (Cozaar) 100 mg PO QAM #90 tab-cap 21 11/19/21 blood sugar diagnostic (Blood #400 strip 08/25/21 11/19/21 Glucose Test) omeprazole 20 mg capsule,delayed 20 mg PO BID #180 cap 11/19/21 11/19/21 release metoprolol succinate 50 mg 50 mg PO DAILY #90 tab 11/27/21 tablet,extended release 24 hr glipizide 5 mg tablet, extended 5 mg PO BID #180 tab-cap 12/17/21 release 24 hr lidocaine 4 % topical patch 1 patch TOPICAL DAILY PRN #10 ea 01/06/22 (Lidocaine Pain Relief) magnesium 250 mg tablet 250 mg PO DAILY #7 tab 01/06/22 meclizine 25 mg tablet 25 mg PO TID #10 tab 01/06/22 Previous Rx's Medication Instructions Recorded lancets 26 gauge #300 ea 01/25/18 albuterol sulfate 90 mcg/actuation 1 - 2 puff IH Q4H PRN #8.5 gm 01/16/19 aerosol inhaler (Ventolin HFA) inhalational spacing device #1 each 01/16/19 (Aerochamber MV) sennosides 8.6 mg tablet (Senna 8.6 - 17.2 mg PO BID PRN #180 01/09/20 Lax) tab-cap apixaban 5 mg tablet (Eliquis) 5 mg PO BID #180 tab 10/01/20 fluoxetine 20 mg capsule 20 mg PO DAILY #90 tab-cap 11/06/20 trazodone 100 mg tablet 100 mg PO HS #90 tab 11/06/20 metformin 500 mg tablet 1,000 mg PO BID 90 Days #360 01/15/21 tab-cap furosemide 20 mg tablet 40 mg PO DAILY #90 tab-cap 07/03/21 simvastatin 40 mg tablet (Zocor) 40 mg PO HS #90 tab-cap 07/03/21 tolterodine 4 mg capsule,extended 4 mg PO DAILY #90 tab-cap 07/03/21 release 24 hr (Detrol LA) losartan 100 mg tablet (Cozaar) 100 mg PO QAM #90 tab-cap 08/06/21 blood sugar diagnostic (Blood #400 strip 08/25/21 Glucose Test) omeprazole 20 mg capsule,delayed 20 mg PO BID #180 cap 11/19/21 release metoprolol succinate 50 mg 50 mg PO DAILY #90 tab 11/27/21 tablet,extended release 24 hr glipizide 5 mg tablet, extended 5 mg PO BID #180 tab-cap 12/17/21 release 24 hr lidocaine 4 % topical patch 1 patch TOPICAL DAILY PRN #10 ea 01/06/22 (Lidocaine Pain Relief) magnesium 250 mg tablet 250 mg PO DAILY #7 tab 01/06/22 meclizine 25 mg tablet 25 mg PO TID #10 tab 01/06/22 Allergies Allergy/AdvReac Type Severity Reaction Status Date / Time ibuprofen Allergy Unknown EDEMA, Verified 11/19/21 14:44 throat swelling codeine AdvReac Intermediate hallucinati Verified 11/19/21 14:44 ons propoxyphene AdvReac Unknown NAUSEA/VOMI Verified 11/19/21 14:36 TING sitagliptin AdvReac Dizziness/L Verified 11/19/21 14:36 ightheade General Stated Complaint: Chest/Rib ELEAZAR: 4 Review of Systems All systems reviewed & are unremarkable except as noted in HPI and below PFSH All Active Problems (Updated 01/06/22 @ 13:52 by ELIZA Cui) Chest wall contusion (Acute) Hypomagnesemia (Acute) Dizziness (Acute) Sleep apnea (Acute 11/26/14) cpap Skin neoplasm (Acute 03/07/18) Shoulder pain (Acute 09/16/97) ROTATOR CUFF TEAR ;CLAVICLE FX; R SHOULDER MILD DJD-HUM. 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 Right toal knee arthroplasty in without difficulty. b. Revision of her right toal knee down at [facility], which was a two-stage revision done for episodic swelling and pain requiring 6 weeks of PICC line antibiotics. c. L4 laminectomy in . d. Rotator cuff repair in . e. Right knee arthroscopy prior to her right total knee. Obesity, morbid, BMI 40.0-49.9 (Chronic) GERD (gastroesophageal reflux disease) (Chronic) a. Controlled with Prilosec, not requiring any regular use of antacids. History of insomnia (Chronic) Lower leg edema (Chronic) a. She used Furosemide. She has been unable to tolerate support hose secondary to the pain they bring on. Postop check (Acute) Infiltrate of lung present on imaging of chest (Acute) Medical History (Updated 01/06/22 @ 13:52 by ELIZA Cui) Atrial fibrillation Quinones esophagus DM (diabetes mellitus) Essential (primary) hypertension Gastric motor function disorder GERD (gastroesophageal reflux disease) Hiatal hernia KEILY (obstructive sleep apnea) Surgical History Arthroplasty of knee 03/21/14; LEFT CERVICAL SPINE X-RAY (04/16/08) degenerative changes Cholecystectomy (01/19/18) PROCEDURES LAMINECTOMY (FOR EXPLORATION), 1979 HNP L4 Replacement of total knee joint (~05/2001) RIGHT Rotator Cuff Repair (~1997) Social History Smoking/Tobacco Use Status: Never Smoking risk assessment performed?: Yes Alcohol Intake: never Drug use: Never Substance use type: does not use Do you feel safe in your relationship?: Yes Exam Const General: cooperative, comfortable and no acute distress HENMT Other: No visible sign of trauma Eyes Pupils: PERRL Neck Other: mild paraspinal tenderness No carotid bruits Chest Chest: normal inspection of the chest Resp Effort & Inspection: normal respiratory effort Auscultation: clear to auscultation bilaterally Cardio Rate: regular rate Rhythm: regular rhythm GI Inspection: normal to inspection Other: Left flank and thorax tenderness, no visible sign of trauma, no crepitus Back/Spine/Pelvis Other: No midline tenderness to thoracic or lumbar spine, no visible sign of trauma Skin General skin exam: no rashes or lesions noted Neuro General: patient alert and patient oriented x3 Cranial Nerves: CN's II-XI intact bilaterally Cognition: normal cognition Speech: speech normal Gait: normal gait Extrem General: normal to inspection Course Vital Signs Vital signs: Vital Signs Temperature 36.1 C L 01/06/22 10:45 Pulse 55 L 01/06/22 10:45 Respiratory Rate 22 01/06/22 10:45 Blood Pressure 128/97 H 01/06/22 10:45 Pulse Oximetry 98 01/06/22 10:45 Temperature 36.1 C L 01/06/22 10:45 Temperature Source Skin 01/06/22 10:45 Pulse 55 L 01/06/22 10:45 Respiratory Rate 22 01/06/22 10:45 Respiratory Effort Non-Labored 01/06/22 10:48 Respiratory Depth Shallow 01/06/22 10:48 Respiratory Pattern Normal 01/06/22 10:48 Blood Pressure 128/97 H 01/06/22 10:45 Blood Pressure Position Sitting 01/06/22 10:45 Pulse Oximetry 98 01/06/22 10:45 Oxygen Delivery Method Room Air 01/06/22 10:45 Oxygen Flow Rate 0 01/06/22 10:45 Pain Level 5 01/06/22 11:41 Lab/Test Results Lab/Test Results: Laboratory Tests Range/Units 01/06/22 01/06/22 01/06/22 11:25 11:25 11:25 WBC (4.4-10.8) 10^3/uL 6.18 RBC (3.93-5.22) 10^6/uL 3.16 L Hgb (11.2-15.7) g/dL 9.1 L Hct (36.0-46.0) % 29.6 L MCV (80-95) fL 93.7 MCH (27.0-33.0) pg 28.8 MCHC (32.0-36.0) % 30.7 L RDW (11.7-14.6) % 15.3 H Plt Count (130-400) 10^3/uL 231 MPV (8.0-11.0) fL 9.8 Immature Gran % 0.3 Neutrophils % 62.6 Lymphocytes % 26.7 Monocytes % 7.6 Eosinophils % 2.3 Basophils % 0.5 Nucleated RBC % % 0 Absolute Neutrophils (1.2-6.7) 10^3/uL 3.87 Absolute Lymphocytes (1.2-3.4) 10^3/uL 1.65 Absolute Monocytes (0.1-0.8) 10^3/uL 0.47 Absolute Eosinophils (0.0-0.7) 10^3/uL 0.14 Absolute Basophils (0.0-0.2) 10^3/uL 0.03 Sodium (136-145) mmol/L 139 Potassium (3.5-5.1) mmol/L 4.6 Chloride (98-107) mmol/L 106 Carbon Dioxide (21.0-32.0) mmol/L 25.1 Anion Gap (3-11) mmol/L 7.9 BUN (7-18) mg/dL 19 H Creatinine (0.55-1.02) mg/dL 1.3 H Estimated GFR/1.73 m2 (mL/min/1.73m2) 39.31 Glucose (74-106) mg/dL 167 H Calcium (8.5-10.1) mg/dL 9.1 Magnesium (1.8-2.4) mg/dL 1.6 L Total Bilirubin (0.2-1.0) mg/dL 0.3 AST (15-37) U/L 27 ALT (14-59) U/L 23 Alkaline Phosphatase (46-116) U/L 61 Troponin I (<or=60) ng/L < 50 Total Protein (6.4-8.2) g/dL 6.5 Albumin (3.4-5.0) g/dL 3.0 L TSH (0.36-3.74) uIU/mL 2.40 Cancelled
[2022-01-06] MEDS: Omnipaque 350 MG/ML 100 ML BTL IJ (13:07)
[2022-01-06] MEDS: Omnipaque 350 MG/ML 50 ML BTL IJ (13:08)
[2022-01-06 13:13] VITALS: BP 152/64; PULSE 59; RESP 20; O2SAT 96
[2022-01-06] MEDS: Normal Saline 500 ML IV (13:18)
[2022-01-06 14:09] VITALS: BP 145/87; PULSE 60; RESP 12; TEMP 36.4; O2SAT 96
[2022-01-06] MEDS: Lidocaine 5% Patch 1 PATCH TP (14:09)
--- NOTE | 2022-01-06 14:15 | NUR.NOTE ---
Nursing Note: All documentation reviewed for Rafaela Christensen
== END 2022-01-06 14:27 | disposition home or self-care (01) ==
PROVIDERS: Emergency Provider Physician Assistant; PCP Nurse Practitioner Family
DX: S20.212A Contusion of left front wall of thorax, initial encounter (principal); W18.39XA Other fall on same level, initial encounter; E83.42 Hypomagnesemia; R42 Dizziness and giddiness; R07.9 Chest pain, unspecified; M54.6 Pain in thoracic spine
CPT/HCPCS: 36415; 70496; 70498; 74177; 80053; 93005; 96361; 96365; 99285; 71260; 83735; 84443; 84484; 85025; 93010; 99284; J0131; J3490; Q9967

== ENCOUNTER 2023-08-31 09:35 | Emergency (ER) | payer MEDICARE, MEDICAID, SELFPAY ==
[2023-08-31] VITALS (39 sets, daily range): BP systolic 153–196; BP diastolic 65–131; PULSE 50–91; RESP 14–37; TEMP 36.6; O2SAT 74–100
--- NOTE | 2023-08-31 09:30 | DI.CT_ITS ---
Exam(s) CT HEAD CERVICAL SPINE WO EXAM: CT HEAD CERVICAL SPINE WO CLINICAL HISTORY: trauma. TECHNIQUE: Imaging Protocol: Axial computed tomography images with coronal and sagittal reformatted images were created and reviewed COMPARISON: CT CT BRAIN NECK CTA from 01/06/2022 FINDINGS: Head CT Ventricles and Extra axial spaces: Normal in size and morphology for the patient's age. Hemorrhage: None. Cerebral parenchyma: Normal. Midline shift: None. Brainstem/Cerebellum: Normal. Calvarium: Normal. Visualized Paranasal sinuses/Mastoids: Clear. Soft tissues: Unremarkable. Cervical Spine CT BONES: Vertebral body heights are maintained. Alignment is normal. There is no evidence of acute frac ture. Advanced degenerative disc changes and facet degenerative changes are seen . SOFT TISSUES: No paraspinal hematoma. The airway appears intact. No pneumothorax is seen at the lung apices. IMPRESSION: Head CT: No acute abnormality. C-spine CT: Degenerative changes, no acute abnormality. RADIATION DOSE DELIVERED: Total DLP DATA REPOSITORY: All CT scans at this facility are submitted to the National Radiology Data Registry (NRDR) Dose Index Registry (DIR) with the [employer] (A[employer]). RADIATION OPTIMIZATION: All CT scans at this facility use at least one of these dose optimization te chniques: automated exposure control; mA and/or kV adjustment per patient size (includes targeted exa ms where dose is matched to clinical indication); or iterative reconstruction.
--- NOTE | 2023-08-31 09:30 | RT.EKG_ITS ---
APPROVED REPORT Exam: Resting ECG Reason for Exam: [facility] Patient Location: E HR:73 bpm ECG Measurements Heart Rate 73 AXIS NV 192 P 66 QRSd 117 QRS -47 QT 437 T 81 QTc 481 Conclusion Sinus rhythm...normal P axis, V-rate 60- 99 Left anterior fascicular block...axis(240,-40), init forces inf Sinus rhythm with left anterior fasicular block. When compared to priori 01/06/22 HR has increased. WD
--- NOTE | 2023-08-31 09:37 | DI.RAD_ITS ---
Exam(s) XR CHEST 1V IN DI DEPT EXAM: XR CHEST 1V IN DI DEPT CLINICAL HISTORY: found on ground TECHNIQUE: 2D digital imaging was performed. COMPARISON: CR XR CHEST 2V PA LATERAL from 01/31/[address] CHEST/ABD/PEL W from 01/06/2022 FINDINGS: LUNGS: Mildly increased interstitial markings. Vascular prominence and Niurka bronchial thickening, garrett spicious for mild CHF. Focal consolidate no pleural abnormality seen. HEART: Normal size. AORTA: Normal diameter. BONES: Scoliosis and degenerative changes in the spine. Soft tissues: Unremarkable. IMPRESSION: Findings consistent with mild CHF. DATA REPOSITORY: RADIATION DOSE DELIVERED:
[2023-08-31] MEDS: Normal Saline 1,000 ML 1000 ML IV (09:43)
[2023-08-31 09:45] LABS: Abs Immature Grans 0.03 10^3/uL (0.0-0.06); Absolute Basophil Count 0.04 10^3/uL (0.0-0.2); Absolute Eosinophil Count 0.04 10^3/uL (0.0-0.7); Absolute Lymphocyte Count 1.98 10^3/uL (1.2-3.4); Absolute Monocyte Count 0.65 10^3/uL (0.1-0.8); Absolute Neutrophil Count 7.46 10^3/uL (1.2-6.7); BE (Venous) -10 mmol/L (-2-3); Basophils % 0.4; Eosinophils % 0.4; HCO3 (Venous) 18 mmol/L (23-28); HCT 29.2 % (36.0-46.0); HGB 8.6 g/dL (11.2-15.7); Immature Grans % 0.3; Lymphocytes % 19.4; MCH 24.2 pg (27.0-33.0); MCHC 29.5 % (32.0-36.0); MCV 82 fL (80-95); MPV 9.2 fL (8.0-11.0); Monocytes % 6.4; Neutrophils % 73.1; O2 Sat (Venous) 55 %; Platelet Count 313 10^3/uL (130-400); RBC 3.55 10^6/uL (3.93-5.22); RDW 20.5 % (11.7-14.6); RDW-SD 61.8 fL; TCO2 (Venous) 17 mmol/L (24-29); pCO2 (Venous) 40 mmHg (41-51); pH (Venous) 7.25 (7.31-7.41); pO2 (Venous) 34 mmHg
--- NOTE | 2023-08-31 09:46 | W.ED.GENAD ---
Discharge Plan Disposition Patient Disposition: Home Condition: Stable Discharge Details Clinical Impression: Hypoglycemia, Fall Primary Care Provider: Hakeem Wheeler ED Provider: Kim Rm Home Meds and New Rx's Prescriptions: No Action lorazepam 0.5 mg tablet 0.5 mg PO BID PRN (Reason: anxiety) Qty: 60 0RF albuterol sulfate [Ventolin HFA] 90 mcg/actuation HFA aerosol inhaler 1 - 2 puff IH Q4H PRN (Reason: shortness of breath or wheezing) Qty: 8.5 0RF (DME) Aerochamber MV spacer See Dose Instructions .ROUTE .MEDSUPPLY Qty: 1 0RF Dose Instruction: As directed Rx Instructions: As directed furosemide 20 mg tablet 20 mg PO DAILY Qty: 90 3RF glipizide 5 mg tablet extended release 24hr 5 mg PO BID Qty: 180 4RF TEST STRIPS 1 EACH strip 1 ea Miscellaneous TID Qty: 300 4RF Rx Instructions: FOR ONE TOUCH ULTRA MINI Dx 250.02 Taking Lantus and Novolog acetaminophen [Tylenol Extra Strength] 500 MG tablet 2 tab PO Q4H PRN cpap 0RF (DME) lancets 1 EACH misc 1 ea Miscellaneous TID Qty: 300 4RF Rx Instructions: FOR ONE TOUCH ULTRA MINI GLUCOMETER Dx E11.9 Taking Lantus and Novolog simvastatin [Zocor] 40 mg tablet 40 mg PO HS Qty: 90 4RF omeprazole 20 mg capsule,delayed release(DR/EC) 20 mg PO BID Qty: 180 3RF metoprolol succinate 50 mg tablet extended release 24 hr 50 mg PO DAILY Qty: 90 3RF metformin 500 mg tablet 1,000 mg PO BID 90 Days Qty: 360 3RF Rx Instructions: NEW DOSE (DME) Blood Glucose Test Strip 1 ea Miscellaneous TID Qty: 400 12RF Rx Instructions: FOR_one touch METER. PT USES INSULIN. TESTS TID DIAGNOSIS CODE _E11.9 On insulin trazodone 100 mg tablet 100 mg PO HS Qty: 90 4RF fluoxetine 20 mg capsule 20 mg PO DAILY Qty: 90 4RF Eliquis 5 mg tablet 5 mg PO BID Qty: 180 3RF tolterodine [Detrol LA] 4 mg capsule,extended release 24hr 4 mg PO DAILY Qty: 90 3RF tizanidine 4 mg tablet 4 mg PO Q8H PRN (Reason: muscle spasticity) Qty: 90 3RF sennosides [Senna Lax] 8.6 mg tablet 8.6 - 17.2 mg PO BID PRN (Reason: constipation) Qty: 180 3RF losartan [Cozaar] 100 mg tablet 100 mg PO QAM Qty: 90 3RF multivitamin 1 EACH capsule 1 cap PO DAILY magnesium 250 mg tablet 250 mg PO DAILY Qty: 7 0RF meclizine 25 mg tablet 25 mg PO TID Qty: 10 0RF lidocaine [Lidocaine Pain Relief] 4 % adhesive patch,medicated 1 patch topical DAILY PRNQty: 10 0RF Discharge Instructions Instructions: Hypoglycemia in a Person with Diabetes (ED), Skin Tear (ED), Fall Prevention (ED) Referrals: Hakeem Wheeler [employer] TECH[employer]ICIAN [Primary Care Provider] - Discharge Data Discharge Physician: Kim Rm Medical Decision Making 83-year-old female with history of atrial fibrillation presents for evaluation after being found on the ground. She was found to be significantly hypoglycemic by staff and blood sugar was treated and improved prior to ED EMS arrival. Blood sugar stable at time of ED arrival. EKG does not show any acute ischemic changes. HPI General Date/Time Provider Initiated Documentation: 08/31/23 09:37. HPI Narrative: [id number]-year-old female with history of atrial fibrillation presents for evaluation after being found on the ground. She is living at assisted living, currently housed in a hotel, and was found on ground by staff. Patient does not remember the incident. She is unsure what she remembers last. She states it may be eating breakfast yesterday. She denies any headache. No visual changes. No neck or back pain. No numbness or tingling in her extremities. No weakness in her extremities. She does have chronic extremity pain. EMS reports that staff found her on the ground with a finger stick of 30. She was given juice and her blood sugar increased to 180 by the time EMS arrived. She did not appear to be incontinent of stool or urine. Patient is unsure when she got her last tetanus vaccine. Denies any chest pain or shortness of breath. No abdominal pain. Related Data Home Medications Medication Instructions Recorded Confirmed multivitamin 1 cap PO DAILY 03/13/14 08/31/23 acetaminophen 500 mg tablet 2 tab PO Q4H PRN 04/03/14 08/31/23 (Tylenol Extra Strength) lancets 26 gauge #300 ea 01/25/18 08/19/23 albuterol sulfate 90 mcg/actuation 1 - 2 puff inhalation Q4H PRN 01/16/19 08/31/23 aerosol inhaler (Ventolin HFA) shortness of breath or wheezing #8.5 grams inhalational spacing device #1 ea 01/16/19 08/19/23 (Aerochamber MV spacer) lidocaine 4 % topical patch 1 patch topical DAILY PRN #10 ea 01/06/22 08/31/23 (Lidocaine Pain Relief) magnesium 250 mg tablet 250 mg PO DAILY #7 tabs 01/06/22 08/31/23 meclizine 25 mg tablet 25 mg PO TID #10 tabs 01/06/22 08/31/23 furosemide 20 mg tablet 20 mg PO DAILY #90 tab-caps 07/06/22 08/31/23 simvastatin 40 mg tablet (Zocor) 40 mg PO HS #90 tab-caps 09/23/22 08/31/23 lorazepam 0.5 mg tablet 0.5 mg PO BID PRN anxiety #60 tabs 10/29/22 08/31/23 metoprolol succinate 50 mg 50 mg PO DAILY #90 tabs 11/18/22 08/31/23 tablet,extended release 24 hr omeprazole 20 mg capsule,delayed 20 mg PO BID #180 caps 11/18/22 08/31/23 release metformin 500 mg tablet 1,000 mg (2 x 500 mg) PO BID 90 01/11/23 08/31/23 days #360 tab-caps blood sugar diagnostic (Blood #400 strips 01/13/23 08/19/23 Glucose Test strips) fluoxetine 20 mg capsule 20 mg PO DAILY #90 tab-caps 02/05/23 08/31/23 trazodone 100 mg tablet 100 mg PO HS #90 tabs 02/05/23 08/31/23 glipizide 5 mg tablet, extended 5 mg PO BID #180 tab-caps 03/29/23 08/31/23 release 24 hr apixaban 5 mg tablet (Eliquis) 5 mg PO BID #180 tabs 04/12/23 08/31/23 tolterodine 4 mg capsule,extended 4 mg PO DAILY #90 tab-caps 04/12/23 08/31/23 release 24 hr (Detrol LA) sennosides 8.6 mg tablet (Senna 8.6 - 17.2 mg (1 - 2 x 8.6 mg) PO 07/19/23 08/31/23 Lax) BID PRN constipation #180 tab-caps tizanidine 4 mg tablet 4 mg PO Q8H PRN muscle spasticity 07/19/23 08/31/23 #90 tabs losartan 100 mg tablet (Cozaar) 100 mg PO QAM #90 tab-caps 08/02/23 08/31/23 Previous Rx's Medication Instructions Recorded lancets 26 gauge #300 ea 01/25/18 albuterol sulfate 90 mcg/actuation 1 - 2 puff inhalation Q4H PRN 01/16/19 aerosol inhaler (Ventolin HFA) shortness of breath or wheezing #8.5 grams inhalational spacing device #1 ea 01/16/19 (Aerochamber MV spacer) lidocaine 4 % topical patch 1 patch topical DAILY PRN #10 ea 01/06/22 (Lidocaine Pain Relief) magnesium 250 mg tablet 250 mg PO DAILY #7 tabs 01/06/22 meclizine 25 mg tablet 25 mg PO TID #10 tabs 01/06/22 furosemide 20 mg tablet 20 mg PO DAILY #90 tab-caps 07/06/22 simvastatin 40 mg tablet (Zocor) 40 mg PO HS #90 tab-caps 09/23/22 lorazepam 0.5 mg tablet 0.5 mg PO BID PRN anxiety #60 tabs 10/29/22 metoprolol succinate 50 mg 50 mg PO DAILY #90 tabs 11/18/22 tablet,extended release 24 hr omeprazole 20 mg capsule,delayed 20 mg PO BID #180 caps 11/18/22 release metformin 500 mg tablet 1,000 mg (2 x 500 mg) PO BID 90 01/11/23 days #360 tab-caps blood sugar diagnostic (Blood #400 strips 01/13/23 Glucose Test strips) fluoxetine 20 mg capsule 20 mg PO DAILY #90 tab-caps 02/05/23 trazodone 100 mg tablet 100 mg PO HS #90 tabs 02/05/23 glipizide 5 mg tablet, extended 5 mg PO BID #180 tab-caps 03/29/23 release 24 hr apixaban 5 mg tablet (Eliquis) 5 mg PO BID #180 tabs 04/12/23 tolterodine 4 mg capsule,extended 4 mg PO DAILY #90 tab-caps 04/12/23 release 24 hr (Detrol LA) sennosides 8.6 mg tablet (Senna 8.6 - 17.2 mg (1 - 2 x 8.6 mg) PO 07/19/23 Lax) BID PRN constipation #180 tab-caps tizanidine 4 mg tablet 4 mg PO Q8H PRN muscle spasticity 07/19/23 #90 tabs losartan 100 mg tablet (Cozaar) 100 mg PO QAM #90 tab-caps 08/02/23 Allergies Allergy/AdvReac Type Severity Reaction Status Date / Time ibuprofen Allergy Unknown EDEMA, Verified 08/31/23 09:35 throat swelling codeine AdvReac Intermediate hallucinati Verified 08/31/23 09:35 ons propoxyphene AdvReac Unknown NAUSEA/VOMI Verified 08/31/23 09:35 TING sitagliptin AdvReac Dizziness/L Verified 08/31/23 09:35 ightheade General Stated Complaint: AMS/LOC ELEAZAR: 3 Review of Systems Narrative: Remainder of review of systems otherwise unobtainable due to patient's altered mental status. PFSH All Active Problems (Updated 08/31/23 @ 14:08 by Kim Rm MD) Fall (Acute) Hypoglycemia (Acute) Physical deconditioning (Acute) Lightheadedness (Acute) Insomnia (Acute) Anxiety (Chronic) Sleep apnea (Acute 11/26/14) cpap Skin neoplasm (Acute 03/07/18) Shoulder pain (Acute 09/16/97) ROTATOR CUFF TEAR ;CLAVICLE FX; R SHOULDER MILD DJD-HUM. 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 Right toal knee arthroplasty in without difficulty. b. Revision of her right toal knee down at [facility], which was a two-stage revision done for episodic swelling and pain requiring 6 weeks of PICC line antibiotics. c. L4 laminectomy in . d. Rotator cuff repair in . e. Right knee arthroscopy prior to her right total knee. Obesity, morbid, BMI 40.0-49.9 (Chronic) GERD (gastroesophageal reflux disease) (Chronic) a. Controlled with Prilosec, not requiring any regular use of antacids. History of insomnia (Chronic) Lower leg edema (Chronic) a. She used Furosemide. She has been unable to tolerate support hose secondary to the pain they bring on. Postop check (Acute) Infiltrate of lung present on imaging of chest (Acute) Medical History (Updated 08/31/23 @ 14:08 by Kim Rm MD) Hiatal hernia Gastric motor function disorder Quinones esophagus GERD (gastroesophageal reflux disease) Atrial fibrillation Essential (primary) hypertension DM (diabetes mellitus) KEILY (obstructive sleep apnea) Surgical History Replacement of total knee joint (~05/2001) RIGHT Rotator Cuff Repair (~1997) PROCEDURES LAMINECTOMY (FOR EXPLORATION), 1979 HNP L4 Cholecystectomy (01/19/18) CERVICAL SPINE X-RAY (04/16/08) degenerative changes Arthroplasty of knee 03/21/14; LEFT Social History Smoking/Tobacco Use Status: Never Smoking risk assessment performed?: Yes Alcohol Intake: never Drug use: Never Substance use type: does not use Do you feel safe in your relationship?: Yes Exam Narrative Exam Narrative: General: non-toxic, no respiratory distress, comfortable HEENT: normocephalic, large skin tear right cheek, lids and lashes normal, PERRL, EOMI, anicteric sclera, no conjunctival injection, moist oral mucosa Neck: No vertebral tenderness Card: regular rate and rhythm, S1S2, no murmurs, rubs, or gallops Lungs: good air entry, clear to auscultation bilaterally. no wheezes, rales, rhonchi, or retractions Abd: soft, non-tender, non-distended, normal bowel sounds, no rebound or guarding, no peritoneal signs Musculoskeletal: No vertebral tenderness, pelvis stable, full range of motion of arms and legs, no tenderness to palpation. no clubbing, cyanosis, or edema Neurologic: Amnestic of events, GCS 15, cranial 2 through 12 intact, speech normal, sensation intact, strength normal Psych: alert and oriented Skin: As above, otherwise no petechiae, no lesions, warm and dry Course Vital Signs Vital signs: Vital Signs Temperature 36.6 C 08/31/23 09:30 Pulse 77 08/31/23 09:30 Respiratory Rate 16 08/31/23 09:30 Blood Pressure 168/80 H 08/31/23 09:30 Pulse Oximetry 99 08/31/23 09:30 Temperature 36.6 C 08/31/23 09:30 Temperature Source Oral 08/31/23 09:30 Pulse 77 08/31/23 09:30 Respiratory Rate 16 08/31/23 09:38 Respiratory Effort Normal 08/31/23 09:38 Respiratory Depth Normal 08/31/23 09:38 Respiratory Pattern Normal 08/31/23 09:38 Blood Pressure 168/80 H 08/31/23 09:30 Blood Pressure Position Supine 08/31/23 09:30 Pulse Oximetry 99 08/31/23 09:30 Oxygen Delivery Method Room Air 08/31/23 09:30 Oxygen Flow Rate 0 08/31/23 09:30 Pain Level 10 08/31/23 09:30
[2023-08-31 09:49] LABS: Lactate 4.1 mmol/L (0.6-1.4)
[2023-08-31 10:02] LABS: Anisocytosis 2+; Diff Comment RBC Morph Reviewed
[2023-08-31 10:06] LABS: ALT 18 U/L (14-59); AST 22 U/L (15-37); Albumin 3.2 g/dL (3.4-5.0); Alkaline Phosphatase 74 U/L (46-116); BUN 24 mg/dL (7-18); Bilirubin, Total 0.3 mg/dL (0.2-1.0); CREATININE 1.8 mg/dL (0.55-1.02); Calcium 9.5 mg/dL (8.5-10.1); Chloride 105 mmol/L (98-107); Creatine Kinase 299 U/L (26-192); Estimated GFR 27.61 (mL/min/1.73m2); Glucose 156 mg/dL (74-106); Magnesium 1.7 mg/dL (1.8-2.4); Potassium 4.3 mmol/L (3.5-5.1); Sodium 137 mmol/L (136-145); Total Protein 7.1 g/dL (6.4-8.2); Troponin I < 50 ng/L (<or=60)
[2023-08-31 10:25] LABS: Bilirubin Negative (Negative); Blood Negative (Negative); Clarity Clear (Clear); Glucose Negative (Negative); Ketones Trace mg/dL (Negative); Leukocyte Esterase Negative (Negative); Nitrite Negative (Negative); Specific Gravity 1.025 (1.005-1.025); Urobilinogen 0.2 mg/dL (Up to 0.2)
[2023-08-31 10:30] LABS: NT-proBNP 729 pg/mL (<300)
[2023-08-31 11:57] LABS: COVID-19 PCR Negative (Negative); Influenza A PCR Negative (Negative); Influenza B PCR Negative (Negative); RSV PCR Negative (Negative); Source Nasopharynx
[2023-08-31 12:41] LABS: Lactate 3.4 mmol/L (0.6-1.4)
[2023-08-31 12:59] LABS: Troponin I < 50 ng/L (<or=60)
== END 2023-08-31 16:13 | disposition home or self-care (01) ==
PROVIDERS: Emergency Provider Emergency Medicine Emergency Medical Services; PCP Nurse Practitioner Family
DX: E11.649 Type 2 diabetes mellitus with hypoglycemia without coma (principal); I48.91 Unspecified atrial fibrillation; I10 Essential (primary) hypertension; Z79.84 Long term (current) use of oral hypoglycemic drugs; I44.4 Left anterior fascicular block; Z11.52 Encounter for screening for COVID-19
CPT/HCPCS: 36415; 80053; 82550; 82805; 82962; 87637; 93005; 96360; 99284; 70450; 71045; 72125; 81003; 83605; 83735; 83880; 84484; 85025; 93010

== ENCOUNTER 2023-09-01 08:55 | Emergency (ER) | payer MEDICARE, MEDICAID, SELFPAY ==
[2023-09-01] VITALS (15 sets, daily range): BP systolic 140–199; BP diastolic 71–143; PULSE 73–103; RESP 16; TEMP 36.8; O2SAT 95–97
--- NOTE | 2023-09-01 08:45 | RT.EKG_ITS ---
APPROVED REPORT Exam: Resting ECG Reason for Exam: Fall Patient Location: E HR:92 bpm ECG Measurements Heart Rate 92 AXIS ID [id number] P [id number] QRSd 115 QRS -46 QT 378 T 111 QTc 469 Conclusion Atrial fibrillation...? atrial activity Incomplete left bundle branch block...QRSd>110mS, terminal axis(-90,-1) I have reviewed and interpreted ECG and agree with software generated interpretation. No stemi
--- NOTE | 2023-09-01 09:00 | DI.RAD_ITS ---
Exam(s) XR CHEST 2V PA LATERAL EXAM: XR CHEST 2V PA LATERAL CLINICAL HISTORY: fall. TECHNIQUE: 2D digital imaging was performed. COMPARISON: CR XR CHEST 1V IN DI DEPT from 08/31/2023 FINDINGS: 2 views: Heart size is upper normal. The mediastinum is not widened. Lungs are clear. No infiltrates nor pleural effusions. IMPRESSION: No acute pulmonary findings. DATA REPOSITORY: RADIATION DOSE DELIVERED:
--- NOTE | 2023-09-01 09:02 | DI.CT_ITS ---
Exam(s) CT HEAD WO EXAM: CT HEAD WO CLINICAL HISTORY: fall after presyncope. TECHNIQUE: Imaging Protocol: Axial computed tomography images with coronal and sagittal reformatted images were created and reviewed COMPARISON: CT CT HEAD CERVICAL SPINE WO from 08/31/2023 FINDINGS: There are no skull fractures. There is no fluid in the visualized paranasal sinuses. There is no evidence of intracranial hemorrhage, mass effect, or shift of midline structures. There are no extra-axial fluid collections. The ventricles are not enlarged or shifted and there is no blo od within the ventricular system nor within the basal cisterns. IMPRESSION: No acute intracranial findings on this noninfused CT scan of the brain. RADIATION DOSE DELIVERED: Total DLP DATA REPOSITORY: All CT scans at this facility are submitted to the National Radiology Data Registry (NRDR) Dose Index Registry (DIR) with the [employer] ([employer]). RADIATION OPTIMIZATION: All CT scans at this facility use at least one of these dose optimization te chniques: automated exposure control; mA and/or kV adjustment per patient size (includes targeted exa ms where dose is matched to clinical indication); or iterative reconstruction.
--- NOTE | 2023-09-01 09:02 | W.ED.GENAD ---
Discharge Plan Disposition Patient Disposition: Home Condition: Stable Discharge Details Clinical Impression: Fall, Physical deconditioning, Acute dehydration, Anemia Primary Care Provider: Hakeem Wheeler ED Provider: Sheridan Roca Home Meds and New Rx's Prescriptions: Continued lorazepam 0.5 mg tablet 0.5 mg PO BID PRN (Reason: anxiety) Qty: 60 0RF albuterol sulfate [Ventolin HFA] 90 mcg/actuation HFA aerosol inhaler 1 - 2 puff IH Q4H PRN (Reason: shortness of breath or wheezing) Qty: 8.5 0RF (DME) Aerochamber MV spacer See Dose Instructions .ROUTE .MEDSUPPLY Qty: 1 0RF Dose Instruction: As directed Rx Instructions: As directed furosemide 20 mg tablet 20 mg PO DAILY Qty: 90 3RF glipizide 5 mg tablet extended release 24hr 5 mg PO BID Qty: 180 4RF TEST STRIPS 1 EACH strip 1 ea Miscellaneous TID Qty: 300 4RF Rx Instructions: FOR ONE TOUCH ULTRA MINI Dx 250.02 Taking Lantus and Novolog acetaminophen [Tylenol Extra Strength] 500 MG tablet 2 tab PO Q4H PRN cpap 0RF (DME) lancets 1 EACH misc 1 ea Miscellaneous TID Qty: 300 4RF Rx Instructions: FOR ONE TOUCH ULTRA MINI GLUCOMETER Dx E11.9 Taking Lantus and Novolog simvastatin [Zocor] 40 mg tablet 40 mg PO HS Qty: 90 4RF omeprazole 20 mg capsule,delayed release(DR/EC) 20 mg PO BID Qty: 180 3RF metoprolol succinate 50 mg tablet extended release 24 hr 50 mg PO DAILY Qty: 90 3RF metformin 500 mg tablet 1,000 mg PO BID 90 Days Qty: 360 3RF Rx Instructions: NEW DOSE (DME) Blood Glucose Test Strip 1 ea Miscellaneous TID Qty: 400 12RF Rx Instructions: FOR_one touch METER. PT USES INSULIN. TESTS TID DIAGNOSIS CODE _E11.9 On insulin trazodone 100 mg tablet 100 mg PO HS Qty: 90 4RF fluoxetine 20 mg capsule 20 mg PO DAILY Qty: 90 4RF Eliquis 5 mg tablet 5 mg PO BID Qty: 180 3RF tolterodine [Detrol LA] 4 mg capsule,extended release 24hr 4 mg PO DAILY Qty: 90 3RF tizanidine 4 mg tablet 4 mg PO Q8H PRN (Reason: muscle spasticity) Qty: 90 3RF sennosides [Senna Lax] 8.6 mg tablet 8.6 - 17.2 mg PO BID PRN (Reason: constipation) Qty: 180 3RF losartan [Cozaar] 100 mg tablet 100 mg PO QAM Qty: 90 3RF multivitamin 1 EACH capsule 1 cap PO DAILY magnesium 250 mg tablet 250 mg PO DAILY Qty: 7 0RF meclizine 25 mg tablet 25 mg PO TID Qty: 10 0RF lidocaine [Lidocaine Pain Relief] 4 % adhesive patch,medicated 1 patch topical DAILY PRNQty: 10 0RF Discharge Instructions Instructions: Dehydration (ED), Anemia (ED) Additional Instructions: Your labs are slightly improved from yesterday. As we discussed, I am concerned about your safety at home. Even when sleeping, please keep the Life Alert on. Please take your time when getting up and changing positions as this seems to be when you are most likely to get lightheaded. Please take your medications as previously prescribed. Please continue to encourage hydration. Please follow-up with your primary care within the next week for reevaluation. Please continue with home health, physical therapy, Occupational Therapy and palliative care as previously outlined out by your primary care. If you develop any new or worsening symptoms please seek care urgently once again. As we discussed, we are always happy to help you get into a rehab facility so we can help you get your strength back more quickly. Referrals: Hakeem Wheeler, [employer] INST[employer]ER [Primary Care Provider] - Medical Decision Making Patient is a pleasant 83-year-old female brought in via EMS after reportedly falling at 8 PM, 13 hours ago, and being on the floor throughout the evening until found by human resources project manager. Past medical history significant for Quinones's esophagus, GERD, atrial fibrillation, hypertension, diabetes, KEILY, MS, anxiety, hiatal hernia, dizzy spells, depression, obesity, insomnia. Patient reports that she is anticoagulated has not taken her meds as of yet today. Patient was here yesterday for the same. At that time, patient did have an elevated lactate and CK but was improving after some hydration. Patient was seen at the beginning of the month by her primary care provider who was concerned about deconditioning. Patient reports that she got up to use the restroom around 8 PM and had episode of feeling lightheaded. States that she then fell, unclear if she had a true syncopal episode or if it was more weakness associated with the lightheadedness, patient is unclear. She reports that she was on her back throughout the evening. She denies any headache, visual change, nausea, vomiting. She does have some pain in her legs and her back but no point tenderness. She feels this more from holding still throughout the course the evening. No change in bowel or bladder habit. No recent fevers or chills. Yesterday, her episode was thought to have been associated with hypoglycemia, glucose 160 per EMS. On exam, patient appears nontoxic. She does appear slightly anxious. She is oriented at this time. 2+ distal pulses in all extremities. No evidence of head trauma. No pain with palpation about the chest, lung sounds are clear with no crepitus. No abdominal pain, pelvic instability or pain. Sensation and strength are intact. ECG was obtained and reviewed by Dr. Irving no acute ischemic findings noted. Patient is in A-fib which she reports is chronic. Patient is anticoagulated on apixaban and states she has been taking this. Care management evaluated patient at bedside, she wouldprefer to go home. Initially, EMS had reported her to be at hotel and patietn had endorsed no local support. Now reporting large amount of family and social connections with support from PCP. Would prefer to go home, to [facility]. Labs reviewed. No leukocytosis. Patient is anemic but this does appear to be her baseline. Lactate 1.9 which is significantly lower than yesterday at which was 3.4 at the time patient was discharged. Creatinine is elevated 1.4 which is her baseline, I do not yesterday which was 1.8. CK slightly elevated at 443 but certainly not enough to be rhabdomyolysis. Clinical picture swell as the improving creatinine and lactate does not point toward rhabdomyolysis at this point. Thyroid within normal limits. No evidence of infection in the urine. She is negative for COVID. CT head was reviewed by radiologist FINDINGS: There are no skull fractures. There is no fluid in the visualized paranasal sinuses. There is no evidence of intracranial hemorrhage, mass effect, or shift of midline structures. There are no extra-axial fluid collections. The ventricles are not enlarged or shifted and there is no blood within the ventricular system nor within the basal cisterns. IMPRESSION: No acute intracranial findings on this noninfused CT scan of the brain. X-ray reviewed by radiologist no acute abnormalities noted. Patient I again discussed disposition at length. Overall, I am quite concerned that she fell yesterday and again today. Since that she has the appropriate equipment to be able to care for herself but still is not following recommendations such as keeping her life alert on, contacting people when she is in trouble. She feels like with the events of yesterday and today she will be more diligent about following these. I did also speak with her primary care, Hakeem Wheeler, I expressed my concerns. We will continue follow-up with the patient. He specifically asked about her daughter who was with the patient at her last visit. I had previously asked to call the daughter and the patient had asked that I not. This does seem to be an area of stress, likely around her daughter being on vacation. She feels safe going home and would prefer to go home via RCT. Strict return precautions were discussed. She will follow-up with primary care within the next week. Care management has also spoken with care management through her primary care office and ensured that appropriate outpatient resources are available to the patient. All of her questions and concerns were addressed and she is in agreement this plan. [facility] General Date/Time Provider Initiated Documentation: 09/01/23 09:02. Limitations to Documentation: no limitations. Information obtained by: patient, EMS, RN notes reviewed and old records reviewed. History of Present Illness 83 year old F presents to the emergency department with the chief complaint of fall, down throughout night on back, described as mild (denies any signficant pain at this point, more concern with recurrent fall), and is localized to the back (generally achy on the back, more from being down, no focal pain or injury). Patient reports no radiation. Patient started experiencing this hour(s) and it has been constant. No relieving factors improve symptom(s), Movement worsens symptoms (gets dizzy with sudden movement, particulary standing up) . Patient notes syncope (unsure if syncopal episode last night); denies chest pain, diaphoresis, fever/chills, headaches, loss of appetite, malaise, nausea/vomiting and shortness of breath. Patient did receive the following treatments prior to arrival, none Related Data Home Medications Medication Instructions Recorded Confirmed multivitamin 1 cap PO DAILY 03/13/14 08/31/23 acetaminophen 500 mg tablet 2 tab PO Q4H PRN 04/03/14 08/31/23 (Tylenol Extra Strength) lancets 26 gauge #300 ea 01/25/18 08/19/23 albuterol sulfate 90 mcg/actuation 1 - 2 puff inhalation Q4H PRN 01/16/19 08/31/23 aerosol inhaler (Ventolin HFA) shortness of breath or wheezing #8.5 grams inhalational spacing device #1 ea 01/16/19 08/19/23 (Aerochamber MV spacer) lidocaine 4 % topical patch 1 patch topical DAILY PRN #10 ea 01/06/22 08/31/23 (Lidocaine Pain Relief) magnesium 250 mg tablet 250 mg PO DAILY #7 tabs 01/06/22 08/31/23 meclizine 25 mg tablet 25 mg PO TID #10 tabs 01/06/22 08/31/23 furosemide 20 mg tablet 20 mg PO DAILY #90 tab-caps 07/06/22 08/31/23 simvastatin 40 mg tablet (Zocor) 40 mg PO HS #90 tab-caps 09/23/22 08/31/23 lorazepam 0.5 mg tablet 0.5 mg PO BID PRN anxiety #60 tabs 10/29/22 08/31/23 metoprolol succinate 50 mg 50 mg PO DAILY #90 tabs 11/18/22 08/31/23 tablet,extended release 24 hr omeprazole 20 mg capsule,delayed 20 mg PO BID #180 caps 11/18/22 08/31/23 release metformin 500 mg tablet 1,000 mg (2 x 500 mg) PO BID 90 01/11/23 08/31/23 days #360 tab-caps blood sugar diagnostic (Blood #400 strips 01/13/23 08/19/23 Glucose Test strips) fluoxetine 20 mg capsule 20 mg PO DAILY #90 tab-caps 02/05/23 08/31/23 trazodone 100 mg tablet 100 mg PO HS #90 tabs 02/05/23 08/31/23 glipizide 5 mg tablet, extended 5 mg PO BID #180 tab-caps 03/29/23 08/31/23 release 24 hr apixaban 5 mg tablet (Eliquis) 5 mg PO BID #180 tabs 04/12/23 08/31/23 tolterodine 4 mg capsule,extended 4 mg PO DAILY #90 tab-caps 04/12/23 08/31/23 release 24 hr (Detrol LA) sennosides 8.6 mg tablet (Senna 8.6 - 17.2 mg (1 - 2 x 8.6 mg) PO 07/19/23 08/31/23 Lax) BID PRN constipation #180 tab-caps tizanidine 4 mg tablet 4 mg PO Q8H PRN muscle spasticity 07/19/23 08/31/23 #90 tabs losartan 100 mg tablet (Cozaar) 100 mg PO QAM #90 tab-caps 08/02/23 08/31/23 Previous Rx's Medication Instructions Recorded lancets 26 gauge #300 ea 01/25/18 albuterol sulfate 90 mcg/actuation 1 - 2 puff inhalation Q4H PRN 01/16/19 aerosol inhaler (Ventolin HFA) shortness of breath or wheezing #8.5 grams inhalational spacing device #1 ea 01/16/19 (Aerochamber MV spacer) lidocaine 4 % topical patch 1 patch topical DAILY PRN #10 ea 01/06/22 (Lidocaine Pain Relief) magnesium 250 mg tablet 250 mg PO DAILY #7 tabs 01/06/22 meclizine 25 mg tablet 25 mg PO TID #10 tabs 01/06/22 furosemide 20 mg tablet 20 mg PO DAILY #90 tab-caps 07/06/22 simvastatin 40 mg tablet (Zocor) 40 mg PO HS #90 tab-caps 09/23/22 lorazepam 0.5 mg tablet 0.5 mg PO BID PRN anxiety #60 tabs 10/29/22 metoprolol succinate 50 mg 50 mg PO DAILY #90 tabs 11/18/22 tablet,extended release 24 hr omeprazole 20 mg capsule,delayed 20 mg PO BID #180 caps 11/18/22 release metformin 500 mg tablet 1,000 mg (2 x 500 mg) PO BID 90 01/11/23 days #360 tab-caps blood sugar diagnostic (Blood #400 strips 01/13/23 Glucose Test strips) fluoxetine 20 mg capsule 20 mg PO DAILY #90 tab-caps 02/05/23 trazodone 100 mg tablet 100 mg PO HS #90 tabs 02/05/23 glipizide 5 mg tablet, extended 5 mg PO BID #180 tab-caps 03/29/23 release 24 hr apixaban 5 mg tablet (Eliquis) 5 mg PO BID #180 tabs 04/12/23 tolterodine 4 mg capsule,extended 4 mg PO DAILY #90 tab-caps 04/12/23 release 24 hr (Detrol LA) sennosides 8.6 mg tablet (Senna 8.6 - 17.2 mg (1 - 2 x 8.6 mg) PO 07/19/23 Lax) BID PRN constipation #180 tab-caps tizanidine 4 mg tablet 4 mg PO Q8H PRN muscle spasticity 07/19/23 #90 tabs losartan 100 mg tablet (Cozaar) 100 mg PO QAM #90 tab-caps 08/02/23 Allergies Allergy/AdvReac Type Severity Reaction Status Date / Time ibuprofen Allergy Unknown EDEMA, Verified 08/31/23 09:35 throat swelling codeine AdvReac Intermediate hallucinati Verified 08/31/23 09:35 ons propoxyphene AdvReac Unknown NAUSEA/VOMI Verified 08/31/23 09:35 TING sitagliptin AdvReac Dizziness/L Verified 08/31/23 09:35 ightheade General ELEAZAR: 3 Review of Systems Constitutional Constitutional: Reports as per HPI, Denies chills, Denies fatigue, Denies fever(s), Denies headache(s) and Reports malaise Eyes Eyes: Reports as per HPI, Denies blurry vision, Denies change in vision and Denies loss of vision ENT Ears, Nose, Mouth, and Throat: Denies abnormal hearing, Reports dizziness (when going from sitting to standing position) and Denies headache(s) Cardiovascular Cardiovascular: Reports as per HPI, Denies chest pain and Denies dyspnea Respiratory Respiratory: Reports as per HPI, Denies cough, Denies pain on inspiration, Denies pain with cough and Denies dyspnea Gastrointestinal Gastrointestinal: Reports as per HPI, Denies abdominal pain, Denies nausea and Denies vomiting Genitourinary Genitourinary: Reports as per HPI and Denies urinary incontinence Musculoskeletal Musculoskeletal: Reports as per HPI Integumentary/Breasts Skin/Breast: Reports as per HPI and Denies rash Neurologic Neurologic: Reports as per HPI, Denies abnormal hearing, Denies abnormal movements, Denies abnormal speech, Reports dizziness (when going from sitting to standing position), Denies headache(s), Denies lack of coordination, Denies localized weakness, Denies loss of vision and Denies paresthesias Endocrine Endocrine: Denies fatigue PFSH All Active Problems (Updated 09/01/23 @ 12:27 by ELIZA David) Anemia (Chronic) Acute dehydration (Acute) Physical deconditioning (Acute) Fall (Acute) Fall (Acute) Hypoglycemia (Acute) Physical deconditioning (Acute) Lightheadedness (Acute) Insomnia (Acute) Anxiety (Chronic) Sleep apnea (Acute 11/26/14) cpap Skin neoplasm (Acute 03/07/18) Shoulder pain (Acute 09/16/97) ROTATOR CUFF TEAR ;CLAVICLE FX; R SHOULDER MILD DJD-HUM. 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 Right toal knee arthroplasty in without difficulty. b. Revision of her right toal knee down at [facility], which was a two-stage revision done for episodic swelling and pain requiring 6 weeks of PICC line antibiotics. c. L4 laminectomy in . d. Rotator cuff repair in . e. Right knee arthroscopy prior to her right total knee. Obesity, morbid, BMI 40.0-49.9 (Chronic) GERD (gastroesophageal reflux disease) (Chronic) a. Controlled with Prilosec, not requiring any regular use of antacids. History of insomnia (Chronic) Lower leg edema (Chronic) a. She used Furosemide. She has been unable to tolerate support hose secondary to the pain they bring on. Postop check (Acute) Infiltrate of lung present on imaging of chest (Acute) Medical History (Updated 09/01/23 @ 12:27 by ELIZA David) Hiatal hernia Gastric motor function disorder Quinones esophagus GERD (gastroesophageal reflux disease) Atrial fibrillation Essential (primary) hypertension DM (diabetes mellitus) KEILY (obstructive sleep apnea) Surgical History Replacement of total knee joint (~05/2001) RIGHT Rotator Cuff Repair (~1997) PROCEDURES LAMINECTOMY (FOR EXPLORATION), 1979 HNP L4 Cholecystectomy (01/19/18) CERVICAL SPINE X-RAY (04/16/08) degenerative changes Arthroplasty of knee 03/21/14; LEFT Social History Smoking/Tobacco Use Status: Never Smoking risk assessment performed?: Yes Alcohol Intake: never Drug use: Never Substance use type: does not use Do you feel safe in your relationship?: Yes Exam Const General: cooperative, healthy appearing, comfortable, no acute distress, well developed and well groomed Nutritional Appearance: well nourished and overweight Orientation: alert, awake and oriented x3 [facility] Head: normal to inspection, no palpable skull fracture, normocephalic and atraumatic Ears: hearing grossly normal bilaterally, external ears normal and TM's normal bilaterally General nose exam: external nose normal Mouth: abnormal oral mucosae (appears dry, otherwise normal), lip normal and tongue normal Throat: posterior oropharynx normal Eyes General: appearance normal, both eyes and all related structures Visual Bush: normal visual bush by confrontation Alignment and Position: alignment normal Periorbital: periorbital findings normal Eyelids: eyelids normal Conjunctivae: conjunctivae normal Pupils: PERRL EOM: EOM intact bilaterally Neck Neck: normal visual inspection, full ROM, no lymphadenopathy, no meningeal signs, trachea midline and supple Chest Chest: normal inspection of the chest, normal palpation of entire chest wall, no crepitus and no localized rib tenderness Resp Effort & Inspection: normal respiratory effort, able to speak in complete sentences and no respiratory distress Auscultation: clear to auscultation bilaterally, no rales, no rhonchi and no wheezes Cardio Rate: regular rate Rhythm: regular rhythm Heart Sounds: S1 normal and S2 normal GI Inspection: normal to inspection, no abdominal wall ecchymosis, no edema and non-distended Palpation: soft, not firm, no guarding, not rigid and nontender Back/Spine/Pelvis Back: no CVA tenderness Cervical Spine: normal cervical lordosis and cervical ROM normal Thoracic/Lumbar Spine: thoracic and lumbar spine normal to inspection, thoraco-lumbar ROM normal, No thoraco-lumbar ROM limited, No thoraco-lumbar spasm and No thoracic spinal tenderness Pelvis: no pain with anterior-posterior compression and no pain with lateral compression Skin Rashes: no rashes Trauma: other (dressing over right cheek from previous skin tear yesterday) Neuro General: patient alert, patient awake, patient oriented x3, gait normal, tone normal and moves all extremities Cranial Nerves: CN's II-XI intact bilaterally Cognition: normal cognition Speech: speech normal Motor: muscle tone normal throughout and strength 5/5 throughout Sensory Exam: no sensory deficits noted (no saddle paresthesias) Extrem General: normal to inspection, full ROM, capillary refill normal, no pedal edema and no calf tenderness Psych Appearance: grossly normal and well kempt Mental Status: mental status grossly normal Speech and Movement: speech and movement normal
[2023-09-01 09:40] LABS: Lactate 1.9 mmol/L (0.6-1.4)
[2023-09-01 09:42] LABS: Abs Immature Grans 0.02 10^3/uL (0.0-0.06); Absolute Basophil Count 0.03 10^3/uL (0.0-0.2); Absolute Eosinophil Count 0.04 10^3/uL (0.0-0.7); Absolute Lymphocyte Count 1.76 10^3/uL (1.2-3.4); Absolute Monocyte Count 0.52 10^3/uL (0.1-0.8); Absolute Neutrophil Count 5.76 10^3/uL (1.2-6.7); Basophils % 0.4; Eosinophils % 0.5; HCT 27.6 % (36.0-46.0); HGB 8.3 g/dL (11.2-15.7); Immature Grans % 0.2; Lymphocytes % 21.6; MCH 24.5 pg (27.0-33.0); MCHC 30.1 % (32.0-36.0); MCV 81 fL (80-95); MPV 9.6 fL (8.0-11.0); Monocytes % 6.4; Neutrophils % 70.9; Platelet Count 295 10^3/uL (130-400); RBC 3.39 10^6/uL (3.93-5.22); RDW 20.9 % (11.7-14.6); RDW-SD 62.4 fL; WBC 8.13 10^3/uL (4.4-10.8)
[2023-09-01 09:58] LABS: INR 1.1 (0.9-1.1); PTT Activated 20.9 sec (23.6-32.8); Prothrombin Time 11.1 sec (9.1-11.1)
[2023-09-01 09:59] LABS: Anisocytosis 2+; Diff Comment RBC Morph Reviewed; Hypochromasia 1+; Polychromasia Present
[2023-09-01 10:14] LABS: Bilirubin Negative (Negative); Blood Negative (Negative); Clarity Clear (Clear); Glucose Negative (Negative); Ketones 15 mg/dL (Negative); Leukocyte Esterase Negative (Negative); Nitrite Negative (Negative); Specific Gravity 1.025 (1.005-1.025); Urobilinogen 0.2 mg/dL (Up to 0.2); pH 5.5 (5-8)
[2023-09-01 10:34] LABS: ALT 24 U/L (14-59); AST 33 U/L (15-37); Albumin 3.2 g/dL (3.4-5.0); Alkaline Phosphatase 77 U/L (46-116); Anion Gap 11.1 mmol/L (3-11); BUN 15 mg/dL (7-18); Bilirubin, Total 0.4 mg/dL (0.2-1.0); CO2 20.9 mmol/L (21.0-32.0); CREATININE 1.4 mg/dL (0.55-1.02); Calcium 9.8 mg/dL (8.5-10.1); Chloride 108 mmol/L (98-107); Creatine Kinase 443 U/L (26-192); Estimated GFR 37.33 (mL/min/1.73m2); Glucose 109 mg/dL (74-106); Magnesium 1.7 mg/dL (1.8-2.4); Potassium 3.8 mmol/L (3.5-5.1); Sodium 140 mmol/L (136-145); TSH (W/Ref FT4) 2.49 uIU/mL (0.36-3.74); Total Protein 7.2 g/dL (6.4-8.2); Troponin I < 50 ng/L (<or=60)
[2023-09-01] MEDS: Lactated Ringers 1,000 ML 500 ML IV (11:00)
[2023-09-01 12:11] LABS: Source Nasal/Nares
[2023-09-01 12:57] LABS: COVID-19 PCR Negative (Negative)
[2023-09-01 13:19] LABS: Troponin I < 50 ng/L (<or=60)
== END 2023-09-01 13:21 | disposition home or self-care (01) ==
PROVIDERS: Emergency Provider Physician Assistant; PCP Nurse Practitioner Family
DX: R42 Dizziness and giddiness (principal); E86.0 Dehydration; D64.9 Anemia, unspecified; I44.7 Left bundle-branch block, unspecified; I48.91 Unspecified atrial fibrillation; I10 Essential (primary) hypertension; E11.9 Type 2 diabetes mellitus without complications; Z79.84 Long term (current) use of oral hypoglycemic drugs; Z87.891 Personal history of nicotine dependence
CPT/HCPCS: 36410; 36415; 80053; 82550; 82962; 87635; 93005; 96360; 96366; 99284; 70450; 71046; 81003; 83605; 83735; 84443; 84484; 85025; 85610; 85730; 93010

== ENCOUNTER 2023-09-05 11:34 | Emergency (ER) | payer MEDICARE, MEDICAID, SELFPAY ==
[2023-09-05] VITALS (151 sets, daily range): BP systolic 78–184; BP diastolic 10–82; PULSE 38–188; RESP 16–35; TEMP 34.2–37; O2SAT 78–97
--- NOTE | 2023-09-05 11:30 | RT.EKG_ITS ---
APPROVED REPORT Exam: Resting ECG Reason for Exam: bradycardia Patient Location: E HR:43 bpm ECG Measurements Heart Rate 43 AXIS WA [id number] P [id number] QRSd 120 QRS -46 QT 582 T 4 QTc 494 Conclusion Junctional rhythm...absent P waves, slow V-rate Incomplete left bundle branch block...QRSd>110mS, terminal axis(-90,-1) junctional bradycardia, left axis
[2023-09-05] MEDS: Normal Saline 2,000 ML 1000 ML IV (11:45)
[2023-09-05] MEDS: Norepinephrine in D5W 8 MG/250 ML BAG 9.375 MG IV (11:54)
[2023-09-05 11:57] LABS: Abs Immature Grans 0.07 10^3/uL (0.0-0.06); Absolute Lymphocyte Count 1.85 10^3/uL (1.2-3.4); Absolute Monocyte Count 1.02 10^3/uL (0.1-0.8); Absolute Neutrophil Count 11.19 10^3/uL (1.2-6.7); Basophils % 0.1; HCT 30.2 % (36.0-46.0); HGB 8.7 g/dL (11.2-15.7); Immature Grans % 0.5; Lymphocytes % 13.1; MCH 24.6 pg (27.0-33.0); MCHC 28.8 % (32.0-36.0); MCV 86 fL (80-95); MPV 9.9 fL (8.0-11.0); Monocytes % 7.2; Neutrophils % 79.1; Platelet Count 373 10^3/uL (130-400); RBC 3.53 10^6/uL (3.93-5.22); RDW 21.4 % (11.7-14.6); RDW-SD 65.2 fL; WBC 14.15 10^3/uL (4.4-10.8)
--- NOTE | 2023-09-05 12:00 | DI.RAD_ITS ---
Exam(s) XR PORTABLE CHEST AP EXAM: XR PORTABLE CHEST AP CLINICAL HISTORY: ams, hypoxia TECHNIQUE: 2D digital imaging was performed. COMPARISON: CR XR CHEST 2V PA LATERAL from 09/01/2023 FINDINGS: Exam quite limited due to defibrillator paddles a monitoring leads overlying the chest. The lungs a re poorly inflated. LUNGS: Grossly clear. Question of tiny left pleural effusion. HEART: Normal size. AORTA: Normal diameter. BONES: Unremarkable for age. Soft tissues: Unremarkable. IMPRESSION: Extremely limited exam. Question tiny left pleural effusion. No infiltrate visible. DATA REPOSITORY: RADIATION DOSE DELIVERED:
[2023-09-05 12:02] LABS: Absolute Basophil Count 0.01 10^3/uL (0.0-0.2)
[2023-09-05 12:14] LABS: Source Nasal/Nares
[2023-09-05 12:18] LABS: Bilirubin Negative (Negative); Blood Moderate (Negative); Clarity Turbid (Clear); Glucose Negative (Negative); Ketones Negative (Negative); Leukocyte Esterase Moderate (Negative); Nitrite Negative (Negative); Specific Gravity 1.025 (1.005-1.025); Urobilinogen 0.2 mg/dL (Up to 0.2); pH 5.5 (5-8)
[2023-09-05 12:20] LABS: ALT 80 U/L (14-59); AST 234 U/L (15-37); Albumin 2.7 g/dL (3.4-5.0); Alkaline Phosphatase 74 U/L (46-116); Anion Gap 18.8 mmol/L (3-11); BUN 44 mg/dL (7-18); Bilirubin, Total 0.3 mg/dL (0.2-1.0); CO2 13.2 mmol/L (21.0-32.0); CREATININE 3.3 mg/dL (0.55-1.02); Calcium 9.1 mg/dL (8.5-10.1); Chloride 102 mmol/L (98-107); Estimated GFR 13.34 (mL/min/1.73m2); Glucose 177 mg/dL (74-106); Magnesium 2.2 mg/dL (1.8-2.4); NT-proBNP 4503 pg/mL (<300); Sodium 134 mmol/L (136-145); Total Protein 6.8 g/dL (6.4-8.2)
[2023-09-05 12:22] LABS: BE (Venous) -19 mmol/L (-2-3); HCO3 (Venous) 10 mmol/L (23-28); O2 Sat (Venous) 69 %; TCO2 (Venous) 10 mmol/L (24-29); pCO2 (Venous) 31 mmHg (41-51); pO2 (Venous) 49 mmHg
[2023-09-05 12:25] LABS: Potassium 6.5 mmol/L (3.5-5.1); Troponin I 93 ng/L (<or=60)
[2023-09-05 12:26] LABS: pH (Venous) 7.12 (7.31-7.41)
[2023-09-05 12:28] LABS: INR 1.5 (0.9-1.1); PTT Activated 28.3 sec (23.6-32.8); Prothrombin Time 14.2 sec (9.1-11.1)
[2023-09-05 12:35] LABS: Anisocytosis 3+; Diff Comment RBC Morph Reviewed; Poikilocytes 1+; Polychromasia Present
[2023-09-05] MEDS: Insulin REGULAR-Human 100 UNITS/ML UNIT 6 UNITS SC (12:37)
[2023-09-05] MEDS: Albuterol 2.5 MG/3 ML INH SOLN VIAL UPD (12:37)
[2023-09-05] MEDS: CALCIUM GLUCONATE in NaCl 1 GM/50 ML BAG IVPB ×2 (12:39→16:50)
[2023-09-05] MEDS: Dextrose 50%-Water 25 GM/50 ML SYR IVP (12:40)
--- NOTE | 2023-09-05 12:45 | DI.CT_ITS ---
Exam(s) CT HEAD WO EXAM: CT HEAD WO CLINICAL HISTORY: ams. TECHNIQUE: Imaging Protocol: Axial computed tomography images with coronal and sagittal reformatted images were created and reviewed COMPARISON: CT CT HEAD WO from 09/01/2023 FINDINGS: Ventricles and Extra axial spaces: Normal in size and morphology for the patient's age. Hemorrhage: None. Cerebral parenchyma: No evidence of acute infarct or mass. Old left basal ganglia lacunar infarct. Minimal white matter changes. Midline shift: None. Brainstem/Cerebellum: Normal. Calvarium: Normal. Visualized Paranasal sinuses/Mastoids: Clear. Soft Tissues: Unremarkable. IMPRESSION: No acute intracranial process. RADIATION DOSE DELIVERED: Total DLP DATA REPOSITORY: All CT scans at this facility are submitted to the National Radiology Data Registry (NRDR) Dose Index Registry (DIR) with the [employer] (A[employer]). RADIATION OPTIMIZATION: All CT scans at this facility use at least one of these dose optimization te chniques: automated exposure control; mA and/or kV adjustment per patient size (includes targeted exa ms where dose is matched to clinical indication); or iterative reconstruction.
[2023-09-05 12:46] LABS: *AMPHETAMINES SCREEN URINE Negative (Negative); *BARBITURATES SCREEN URINE Negative (Negative); *BENZODIAZEPINES SCREEN URINE Negative (Negative); Bacteria Many HPF (Negative); C & S Indicated? Yes; Cannabinoids THC Negative (Negative); Cocaine Screen,Urine Negative (Negative); METHADONE URINE SCREEN Negative (Negative); OPIATES URINE SCREEN Negative (Negative); WBC >50 HPF (0-5)
--- NOTE | 2023-09-05 12:46 | DI.CT_ITS ---
Exam(s) CT CHEST/ABD/PEL WO EXAM: CT CHEST/ABD/PEL WO CLINICAL HISTORY: ams, hypothermia, BAD LABS, PER DR. NAQVI CHANGE TO WO CONTRAST. TECHNIQUE: Imaging Protocol: Axial computed tomography images with coronal and sagittal reformatted images were created and reviewed CONTRAST MATERIAL: Intravenous: Omnipaque 350 Contrast volume:None Oral: no COMPARISON: CT CT THORACIC SPINE RECONS from 01/06/2022 FINDINGS: CHEST: Exam limited by artifact due to respiratory motion, body habitus and arm positioning. Tracheobronchial tree: Patent where visualized. Pulmonary parenchyma: No consolidation or dominant measurable mass. Pleura: No effusion or pneumothorax. Lymph nodes: Within normal limits. Aorta: Thoracic portion non-dilated. Heart: Mildly enlarged. Coronary artery calcifications. No pericardial effusion. Bones: Degenerative changes and scoliosis. No lytic or blastic lesions.No compression fractures. ABDOMEN and PELVIS: Liver: Normal density. No measurable mass. Gallbladder and biliary tract: Status post cholecystectomy. No evidence of stones or wall thickening . No biliary dilatation. Pancreas: Normal density, no abnormal calcifications or inflammatory process. Spleen: Normal. Kidneys: Kidneys atrophic. No radiodense stones or obstructive uropathy. No suspicious masses seen. Adrenal glands: No masses seen. Aorta: Abdominal portion non-dilated. Moderate atherosclerotic changes. Lymph nodes: Within normal limits. Soft tissues: Small fatty containing umbilical hernia. Bladder: Decompressed by Joseph catheter. Not well evaluated. Bowel: No obstruction or bowel wall thickening. Three diverticula seen in duodenal sweep. Minimal colonic diverticulosis. Peritoneal cavity: No ascites. No focal collection or mesenteric inflammatory response. Bones: Degenerative changes and scoliosis. Reproductive organs: Within normal limits. IMPRESSION: No acute abnormality in the chest, abdomen or pelvis.. RADIATION DOSE DELIVERED: Total DLP DATA REPOSITORY: All CT scans at this facility are submitted to the National Radiology Data Registry (NRDR) Dose Index Registry (DIR) with the [employer] (ACR). RADIATION OPTIMIZATION: All CT scans at this facility use at least one of these dose optimization te chniques: automated exposure control; mA and/or kV adjustment per patient size (includes targeted exa ms where dose is matched to clinical indication); or iterative reconstruction.
[2023-09-05 12:47] LABS: Tricyclic Antidepressants Negative (Negative)
[2023-09-05] MEDS: PIPERACILLIN/TAZO 3.375 GM in Normal Saline 50 ML IVPB (12:53)
--- NOTE | 2023-09-05 12:53 | ED.GENADUL_ITS ---
Discharge Plan Disposition Patient Disposition: Transfer-Acute Inpatient Care Specific Acute Inpt Facility: [facility] Condition: Serious Discharge Details Chief Complaint: Fall/Non TraumaCriteria Clinical Impression: RAFAEL (acute kidney injury), Hypothermia, Acute UTI, Hyperkalemia Primary Care Provider: Hakeem Wheeler ED Provider: Carlos Espinoza Home Meds and New Rx's Prescriptions: No Action lorazepam 0.5 mg tablet 0.5 mg PO BID PRN (Reason: anxiety) Qty: 60 0RF albuterol sulfate [Ventolin HFA] 90 mcg/actuation HFA aerosol inhaler 1 - 2 puff IH Q4H PRN (Reason: shortness of breath or wheezing) Qty: 8.5 0RF (DME) Aerochamber MV spacer See Dose Instructions .ROUTE .MEDSUPPLY Qty: 1 0RF Dose Instruction: As directed Rx Instructions: As directed furosemide 20 mg tablet 20 mg PO DAILY Qty: 90 3RF glipizide 5 mg tablet extended release 24hr 5 mg PO BID Qty: 180 4RF TEST STRIPS 1 EACH strip 1 ea Miscellaneous TID Qty: 300 4RF Rx Instructions: FOR ONE TOUCH ULTRA MINI Dx 250.02 Taking Lantus and Novolog acetaminophen [Tylenol Extra Strength] 500 MG tablet 2 tab PO Q4H PRN cpap 0RF (DME) lancets 1 EACH misc 1 ea Miscellaneous TID Qty: 300 4RF Rx Instructions: FOR ONE TOUCH ULTRA MINI GLUCOMETER Dx E11.9 Taking Lantus and Novolog simvastatin [Zocor] 40 mg tablet 40 mg PO HS Qty: 90 4RF omeprazole 20 mg capsule,delayed release(DR/EC) 20 mg PO BID Qty: 180 3RF metoprolol succinate 50 mg tablet extended release 24 hr 50 mg PO DAILY Qty: 90 3RF metformin 500 mg tablet 1,000 mg PO BID 90 Days Qty: 360 3RF Rx Instructions: NEW DOSE (DME) Blood Glucose Test Strip 1 ea Miscellaneous TID Qty: 400 12RF Rx Instructions: FOR_one touch METER. PT USES INSULIN. TESTS TID DIAGNOSIS CODE _E11.9 On insulin trazodone 100 mg tablet 100 mg PO HS Qty: 90 4RF fluoxetine 20 mg capsule 20 mg PO DAILY Qty: 90 4RF Eliquis 5 mg tablet 5 mg PO BID Qty: 180 3RF tolterodine [Detrol LA] 4 mg capsule,extended release 24hr 4 mg PO DAILY Qty: 90 3RF tizanidine 4 mg tablet 4 mg PO Q8H PRN (Reason: muscle spasticity) Qty: 90 3RF sennosides [Senna Lax] 8.6 mg tablet 8.6 - 17.2 mg PO BID PRN (Reason: constipation) Qty: 180 3RF losartan [Cozaar] 100 mg tablet 100 mg PO QAM Qty: 90 3RF multivitamin 1 EACH capsule 1 cap PO DAILY magnesium 250 mg tablet 250 mg PO DAILY Qty: 7 0RF meclizine 25 mg tablet 25 mg PO TID Qty: 10 0RF lidocaine [Lidocaine Pain Relief] 4 % adhesive patch,medicated 1 patch topical DAILY PRNQty: 10 0RF Medical Decision Making 83-year-old female history of diabetes A-fib on apixaban found on the ground wedged against the wall, found to be hypothermic hypoxic hypotensive and bradycardic, EKG junctional rhythm; severely dehydrated with dry oromucosa and dry skin, crash femoral central line was placed right groin, norepinephrine star mukehs 5 mcg/min, patient found to be in RAFAEL with severe hyperkalemia likely prerenal. Bear hugger applied, calcium insulin albuterol nebs and dextrose given. Great improvement of mental status, patient is normotensive currently with improving heart rate as well still junctional. Will obtain CT head CT chest abdomen pelvis to assess for any traumatic injuries given patient found down altered. No focal deficits at this time. Patient will need ICU level care. 14: 00 blood pressure greatly improving, heart rate still in the 40s junctional rhythm, remains hypothermic despite warm fluids and Breanne hugger we will continue with warming efforts. Patient given calcium albuterol insulin dextrose to treat severe hyperkalemia. Patient arousable to voice following commands. Awaiting CT results patient will likely need transfer for ICU level care given current unavailability of ICU beds in this facility 16:03 patient coloration greatly improved mental status greatly improved, no respiratory distress, beginning to put out urine approximate 100 cc of concentrated urine in Joseph bag, becoming near normothermic; patient now has P waves and QRS is narrowing consistent with improving hypokalemia. Will repeat VBG and basic metabolic panel. 17: 10 sinus bradycardia at a rate of 53, maintaining blood pressures, starting to output more urine, hyperkalemia improving will redose calcium gluconate given hypocalcemia and persistent hyperkalemia, VBG also improving; have not heard back from critical care team at [facility], have placed call to [facility] critical care team for potential transfer. 18: 10 patient has been accepted by critical care team at [facility] excepting physician Dr. Ortiz. Patient to be transferred to MICU. HPI General Date/Time Provider Initiated Documentation: 09/05/23 11:37 . HPI Narrative: 83-year-old female history of A-fib, diabetes on apixaban, presents brought in by EMS found down at home for unknown period of time was wedged against the wall on a cold floor, patient altered hypoxic hypotensive and bradycardic. Related Data Home Medications Medication Instructions Recorded Confirmed multivitamin 1 cap PO DAILY 03/13/14 09/02/23 acetaminophen 500 mg tablet 2 tab PO Q4H PRN 04/03/14 09/02/23 (Tylenol Extra Strength) lancets 26 gauge #300 ea 01/25/18 09/02/23 albuterol sulfate 90 mcg/actuation 1 - 2 puff inhalation Q4H PRN 01/16/19 09/02/23 aerosol inhaler (Ventolin HFA) shortness of breath or wheezing #8.5 grams inhalational spacing device #1 ea 01/16/19 09/02/23 (Aerochamber MV spacer) lidocaine 4 % topical patch 1 patch topical DAILY PRN #10 ea 01/06/22 09/02/23 (Lidocaine Pain Relief) magnesium 250 mg tablet 250 mg PO DAILY #7 tabs 01/06/22 09/02/23 meclizine 25 mg tablet 25 mg PO TID #10 tabs 01/06/22 09/02/23 furosemide 20 mg tablet 20 mg PO DAILY #90 tab-caps 07/06/22 09/02/23 simvastatin 40 mg tablet (Zocor) 40 mg PO HS #90 tab-caps 09/23/22 09/02/23 lorazepam 0.5 mg tablet 0.5 mg PO BID PRN anxiety #60 tabs 10/29/22 09/02/23 metoprolol succinate 50 mg 50 mg PO DAILY #90 tabs 02/01/23 11/16/23 tablet,extended release 24 hr omeprazole 20 mg capsule,delayed 20 mg PO BID #180 caps 11/18/22 09/02/23 release metformin 500 mg tablet 1,000 mg (2 x 500 mg) PO BID 90 01/11/23 09/02/23 days #360 tab-caps blood sugar diagnostic (Blood #400 strips 01/13/23 09/02/23 Glucose Test strips) fluoxetine 20 mg capsule 20 mg PO DAILY #90 tab-caps 02/05/23 09/02/23 trazodone 100 mg tablet 100 mg PO HS #90 tabs 02/05/23 09/02/23 glipizide 5 mg tablet, extended 5 mg PO BID #180 tab-caps 03/29/23 09/02/23 release 24 hr apixaban 5 mg tablet (Eliquis) 5 mg PO BID #180 tabs 04/12/23 09/02/23 tolterodine 4 mg capsule,extended 4 mg PO DAILY #90 tab-caps 04/12/23 09/02/23 release 24 hr (Detrol LA) sennosides 8.6 mg tablet (Senna 8.6 - 17.2 mg (1 - 2 x 8.6 mg) PO 07/19/23 09/02/23 Lax) BID PRN constipation #180 tab-caps tizanidine 4 mg tablet 4 mg PO Q8H PRN muscle spasticity 07/19/23 09/02/23 #90 tabs losartan 100 mg tablet (Cozaar) 100 mg PO QAM #90 tab-caps 08/02/23 09/02/23 Previous Rx's Medication Instructions Recorded lancets 26 gauge #300 ea 01/25/18 albuterol sulfate 90 mcg/actuation 1 - 2 puff inhalation Q4H PRN 01/16/19 aerosol inhaler (Ventolin HFA) shortness of breath or wheezing #8.5 grams inhalational spacing device #1 ea 01/16/19 (Aerochamber MV spacer) lidocaine 4 % topical patch 1 patch topical DAILY PRN #10 ea 01/06/22 (Lidocaine Pain Relief) magnesium 250 mg tablet 250 mg PO DAILY #7 tabs 01/06/22 meclizine 25 mg tablet 25 mg PO TID #10 tabs 01/06/22 furosemide 20 mg tablet 20 mg PO DAILY #90 tab-caps 07/06/22 simvastatin 40 mg tablet (Zocor) 40 mg PO HS #90 tab-caps 09/23/22 lorazepam 0.5 mg tablet 0.5 mg PO BID PRN anxiety #60 tabs 10/29/22 metoprolol succinate 50 mg 50 mg PO DAILY #90 tabs 11/18/22 tablet,extended release 24 hr omeprazole 20 mg capsule,delayed 20 mg PO BID #180 caps 11/18/22 release metformin 500 mg tablet 1,000 mg (2 x 500 mg) PO BID 90 01/11/23 days #360 tab-caps blood sugar diagnostic (Blood #400 strips 01/13/23 Glucose Test strips) fluoxetine 20 mg capsule 20 mg PO DAILY #90 tab-caps 02/05/23 trazodone 100 mg tablet 100 mg PO HS #90 tabs 02/05/23 glipizide 5 mg tablet, extended 5 mg PO BID #180 tab-caps 03/29/23 release 24 hr apixaban 5 mg tablet (Eliquis) 5 mg PO BID #180 tabs 04/12/23 tolterodine 4 mg capsule,extended 4 mg PO DAILY #90 tab-caps 04/12/23 release 24 hr (Detrol LA) sennosides 8.6 mg tablet (Senna 8.6 - 17.2 mg (1 - 2 x 8.6 mg) PO 07/19/23 Lax) BID PRN constipation #180 tab-caps tizanidine 4 mg tablet 4 mg PO Q8H PRN muscle spasticity 07/19/23 #90 tabs losartan 100 mg tablet (Cozaar) 100 mg PO QAM #90 tab-caps 08/02/23 Allergies Allergy/AdvReac Type Severity Reaction Status Date / Time ibuprofen Allergy Unknown EDEMA, Verified 08/31/23 09:35 throat swelling codeine AdvReac Intermediate hallucinati Verified 08/31/23 09:35 ons propoxyphene AdvReac Unknown NAUSEA/VOMI Verified 08/31/23 09:35 TING sitagliptin AdvReac Dizziness/L Verified 08/31/23 09:35 ightheade General Stated Complaint: Fall/Non TraumaCriteria ELEAZAR: 1 Review of Systems Narrative: Review of Systems Constitutional: Altered mental status Eyes: negative ENT: negative Cardiovascular: Bradycardia, hypotension Respiratory: Hypoxia Gastrointestinal: negative : negative Musculoskeletal: negative Skin: negative Neurologic: negative Psych: negative PFSH All Active Problems (Updated 09/05/23 @ 18:11 by Carlos Espinoza MD) Hyperkalemia (Acute) Acute UTI (Acute) Hypothermia (Acute) RAFAEL (acute kidney injury) (Acute) Anemia (Chronic) Acute dehydration (Acute) Physical deconditioning (Acute) Fall (Acute) Fall (Acute) Hypoglycemia (Acute) Physical deconditioning (Acute) Lightheadedness (Acute) Insomnia (Acute) Anxiety (Chronic) Sleep apnea (Acute 11/26/14) cpap Skin neoplasm (Acute 03/07/18) Shoulder pain (Acute 09/16/97) ROTATOR CUFF TEAR ;CLAVICLE FX; R SHOULDER MILD DJD-HUM. 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 Right toal knee arthroplasty in without difficulty. b. Revision of her right toal knee down at [facility], which was a two-stage revision done for episodic swelling and pain requiring 6 weeks of PICC line antibiotics. c. L4 laminectomy in . d. Rotator cuff repair in . e. Right knee arthroscopy prior to her right total knee. Obesity, morbid, BMI 40.0-49.9 (Chronic) GERD (gastroesophageal reflux disease) (Chronic) a. Controlled with Prilosec, not requiring any regular use of antacids. History of insomnia (Chronic) Lower leg edema (Chronic) a. She used Furosemide. She has been unable to tolerate support hose secondary to the pain they bring on. Postop check (Acute) Infiltrate of lung present on imaging of chest (Acute) Medical History (Updated 09/05/23 @ 18:11 by Carlos Espinoza MD) Hiatal hernia Gastric motor function disorder Quinones esophagus GERD (gastroesophageal reflux disease) Atrial fibrillation Essential (primary) hypertension DM (diabetes mellitus) KEILY (obstructive sleep apnea) Surgical History Replacement of total knee joint (~05/2001) RIGHT Rotator Cuff Repair (~1997) PROCEDURES LAMINECTOMY (FOR EXPLORATION), 1979 HNP L4 Cholecystectomy (01/19/18) CERVICAL SPINE X-RAY (04/16/08) degenerative changes Arthroplasty of knee 03/21/14; LEFT Social History Smoking/Tobacco Use Status: Never Smoking risk assessment performed?: Yes Alcohol Intake: never Drug use: Never Substance use type: does not use Housing: assisted living facility Do you feel safe in your relationship?: Yes Exam Narrative Exam Narrative: Physical Examination General: Decreased level of consciousness HEENT: normocephalic, atraumatic; PERRL, EOM intact, conjunctiva normal; no nasal discharge; dry oral mucosa Neck: supple, trachea midline; full ROM Chest: normal to inspection Respiratory: normal respiratory effort, speaking in full sentences, clear to auscultation, no wheezing, rales or rhonchi Cardiac: Bradycardia GI: abdomen soft, non-tender, non-distended; no palpable mass or hepatosplenomegaly : Normal external genitalia Skin: no lesions, rashes or trauma appreciated; dry skin Neuro: Patient responsive to voice, opening eyes spontaneously moving extremities to command without deficit Extremities: No signs of trauma Course Vital Signs Vital signs: Vital Signs Temperature 35.8 C L 09/05/23 11:35 Pulse 47 L 09/05/23 11:35 Respiratory Rate 23 09/05/23 11:35 Blood Pressure 78/21 L 09/05/23 11:35 Pulse Oximetry 78 L 09/05/23 11:35 Temperature 35.6 C L 09/05/23 12:46 Temperature Source Rectal 09/05/23 11:35 Pulse 45 L 09/05/23 12:46 Pulse 45 L 09/05/23 12:46 Respiratory Rate 28 H 09/05/23 12:46 Blood Pressure 141/45 H 09/05/23 12:46 Blood Pressure Mean 74 09/05/23 12:46 Blood Pressure Position Supine 09/05/23 11:35 Pulse Oximetry 78 L 09/05/23 11:35 Respiratory End-tidal CO2 12 09/05/23 12:46 Oxygen Delivery Method Room Air 09/05/23 11:35 Oxygen Flow Rate 0 09/05/23 11:35 Lab/Test Results Lab/Test Results: 09/05/23 12:11 Urine - Reflex from Ua Urine Culture - Pending 09/05/23 11:50 Blood Blood Culture - Pending 09/05/23 11:45 Blood Blood Culture - Pending Laboratory Tests Range/Units 09/05/23 09/05/23 09/05/23 11:45 12:00 12:11 WBC (4.4-10.8) 10^3/uL 14.15 H RBC (3.93-5.22) 10^6/uL 3.53 L Hgb (11.2-15.7) g/dL 8.7 L Hct (36.0-46.0) % 30.2 L MCV (80-95) fL 86 D MCH (27.0-33.0) pg 24.6 L MCHC (32.0-36.0) % 28.8 L RDW (11.7-14.6) % 21.4 H Plt Count (130-400) 10^3/uL 373 MPV (8.0-11.0) fL 9.9 Immature Gran % 0.5 Neutrophils % 79.1 Lymphocytes % 13.1 Monocytes % 7.2 Eosinophils % 0.0 Basophils % 0.1 Nucleated RBC % (0.0-0.3) % 0.0 Absolute Neutrophils (1.2-6.7) 10^3/uL 11.19 H Absolute Lymphocytes (1.2-3.4) 10^3/uL 1.85 Absolute Monocytes (0.1-0.8) 10^3/uL 1.02 H Absolute Eosinophils (0.0-0.7) 10^3/uL 0.00 Absolute Basophils (0.0-0.2) 10^3/uL 0.01 RBC Morphology See Below Polychromasia Present Poikilocytosis 1+ Anisocytosis 3+ PT Cancelled 14.2 H INR Cancelled 1.5 H APTT Cancelled 28.3 VBG pH (7.31-7.41) VBG pCO2 (41-51) mmHg VBG pO2 mmHg VBG HCO3 (23-28) mmol/L VBG Total CO2 (24-29) mmol/L VBG O2 Saturation % VBG Base Excess (-2-3) mmol/L Sodium (136-145) mmol/L 134 L Potassium (3.5-5.1) mmol/L 6.5 H* Chloride (98-107) mmol/L 102 Carbon Dioxide (21.0-32.0) mmol/L 13.2 L Anion Gap (3-11) mmol/L 18.8 H BUN (7-18) mg/dL 44 H Creatinine (0.55-1.02) mg/dL 3.3 H Est GFR (CKD-EPI 2020) (mL/min/1.73m2) 13.34 Glucose (74-106) mg/dL 177 H Calcium (8.5-10.1) mg/dL 9.1 Magnesium (1.8-2.4) mg/dL 2.2 Total Bilirubin (0.2-1.0) mg/dL 0.3 AST (15-37) U/L 234 H ALT (14-59) U/L 80 H Alkaline Phosphatase (46-116) U/L 74 Troponin I (<or=60) ng/L 93 H* NT-Pro-B Natriuret Pep (<300) pg/mL 4503 H Total Protein (6.4-8.2) g/dL 6.8 Albumin (3.4-5.0) g/dL 2.7 L Urine Color (Yellow) Yellow Urine Clarity (Clear) Turbid Urine pH (5-8) 5.5 Ur Specific Oscar (1.005-1.025) 1.025 Urine Protein (Negative) mg/dL 100 H Urine Ketones (Negative) mg/dL Negative Urine Blood (Negative) Moderate H Urine Nitrite (Negative) Negative Urine Bilirubin (Negative) Negative Urine Urobilinogen (Up to 0.2) mg/dL 0.2 Ur Leukocyte Esterase (Negative) Moderate H Urine RBC Not Applicable Urine WBC (0-5) HPF >50 H Ur Epithelial Cells Not Applicable Urine Crystals Not Applicable Urine Bacteria (Negative) HPF Many Urine Mucus Not Applicable Ur Culture Indicated? Yes Urine Glucose (Negative) mg/dL Negative Urine Opiates Screen (Negative) Negative Urine Methadone Screen (Negative) Negative Ur Barbiturates Screen (Negative) Negative Ur Tricyclics Screen (Negative) Negative Ur Amphetamines Screen (Negative) Negative U Benzodiazepines Scrn (Negative) Negative Urine Cocaine Screen (Negative) Negative Ur THC Screen (Negative) Negative COVID-19 Source Nasal/Nares Range/Units 09/05/23 12:15 WBC (4.4-10.8) 10^3/uL RBC (3.93-5.22) 10^6/uL Hgb (11.2-15.7) g/dL Hct (36.0-46.0) % MCV (80-95) fL MCH (27.0-33.0) pg MCHC (32.0-36.0) % RDW (11.7-14.6) % Plt Count (130-400) 10^3/uL MPV (8.0-11.0) fL Immature Gran % Neutrophils % Lymphocytes % Monocytes % Eosinophils % Basophils % Nucleated RBC % (0.0-0.3) % Absolute Neutrophils (1.2-6.7) 10^3/uL Absolute Lymphocytes (1.2-3.4) 10^3/uL Absolute Monocytes (0.1-0.8) 10^3/uL Absolute Eosinophils (0.0-0.7) 10^3/uL Absolute Basophils (0.0-0.2) 10^3/uL RBC Morphology Polychromasia Poikilocytosis Anisocytosis PT INR APTT VBG pH (7.31-7.41) 7.12 L* VBG pCO2 (41-51) mmHg 31 L VBG pO2 mmHg 49 VBG HCO3 (23-28) mmol/L 10 L VBG Total CO2 (24-29) mmol/L 10 L VBG O2 Saturation % 69 VBG Base Excess (-2-3) mmol/L -19 L Sodium (136-145) mmol/L Potassium (3.5-5.1) mmol/L Chloride (98-107) mmol/L Carbon Dioxide (21.0-32.0) mmol/L Anion Gap (3-11) mmol/L BUN (7-18) mg/dL Creatinine (0.55-1.02) mg/dL Est GFR (CKD-EPI 2020) (mL/min/1.73m2) Glucose (74-106) mg/dL Calcium (8.5-10.1) mg/dL Magnesium (1.8-2.4) mg/dL Total Bilirubin (0.2-1.0) mg/dL AST (15-37) U/L ALT (14-59) U/L Alkaline Phosphatase (46-116) U/L Troponin I (<or=60) ng/L NT-Pro-B Natriuret Pep (<300) pg/mL Total Protein (6.4-8.2) g/dL Albumin (3.4-5.0) g/dL Urine Color (Yellow) Urine Clarity (Clear) Urine pH (5-8) Ur Specific Oscar (1.005-1.025) Urine Protein (Negative) mg/dL Urine Ketones (Negative) mg/dL Urine Blood (Negative) Urine Nitrite (Negative) Urine Bilirubin (Negative) Urine Urobilinogen (Up to 0.2) mg/dL Ur Leukocyte Esterase (Negative) Urine RBC Urine WBC (0-5) HPF Ur Epithelial Cells Urine Crystals Urine Bacteria (Negative) HPF Urine Mucus Ur Culture Indicated? Urine Glucose (Negative) mg/dL Urine Opiates Screen (Negative) Urine Methadone Screen (Negative) Ur Barbiturates Screen (Negative) Ur Tricyclics Screen (Negative) Ur Amphetamines Screen (Negative) U Benzodiazepines Scrn (Negative) Urine Cocaine Screen (Negative) Ur THC Screen (Negative) COVID-19 Source Procedures Central Line Placement Right Femoral: Time Out Performed: Yes Patient Placed on Monitor/Pulse Ox: Yes MD Prep: gloves Central Line Prep: Chlorhexidine scrub Local Anesthetic: Lidocaine 1% Amount of anesthesia used (mL): 3 Ultrasound Used for Placement: Yes Central Line Lumen Inserted: triple Post Procedure: good blood return, all ports aspirated, flushed, capped and sutured in place with 2-0 silk Patient Tolerated Procedure: well Complications: none Additional Comments: This was a crash femoral line under partial sterile techniques. Line should be removed at earliest opportunity. Critical Care Time Critical Care Time Critical Care Time: Yes Total Critical Care Time: 30 Attestation: Critical care time spent at the bedside assessing patient interpreting lab interpreting imaging, placing central line, initiating pressors and antibiotics, reviewing labs imaging and EKG, and critically ill patient with severe hypothermia and hyperkalemia.
[2023-09-05 12:59] LABS: Lipase 27 U/L (16-77); TSH (W/Ref FT4) 3.44 uIU/mL (0.36-3.74)
[2023-09-05 13:01] LABS: ETHANOL BLOOD < 3.0 mg/dL (<10)
[2023-09-05 13:06] LABS: Acetaminophen 37 ug/mL (10-30)
[2023-09-05 13:08] LABS: COVID-19 PCR Negative (Negative)
[2023-09-05 13:12] LABS: Creatine Kinase > 10000 U/L (26-192)
--- NOTE | 2023-09-05 13:38 | DI.VRAD_ITS ---
PROCEDURE INFORMATION: Exam: XR Chest Exam date and time: 09/05/2023 12:15 PM Age: 83 years old Clinical indication: Other: AMS TECHNIQUE: Imaging protocol: Radiologic exam of the chest. Views: 1 view. COMPARISON: CR XR CHEST 2V PA LATERAL 09/01/2023 10:52 AM FINDINGS: Lungs: There is a poor inspiratory effort. There may be minimal atelectasis at the right lung base but there is no lobar consolidation or overt CHF Pleural spaces: A large pleural effusion, or pneumothorax is not seen. Heart/Mediastinum: Heart, mediastinum are unchanged. Bones/joints: There is no acute bony abnormality IMPRESSION: Poor inspiratory effort. No lobar consolidation or overt CHF Dictated and Authenticated by: Kim Cabezas MD. Ordering:NEYDA Gonzalez MD
[2023-09-05] MEDS: VANCOMYCIN/WATER (PEG) 2 GM/400 ML BAG IVPB (13:49)
[2023-09-05 13:56] LABS: COVID-19 PCR Negative (Negative); Influenza A PCR Negative (Negative); Influenza B PCR Negative (Negative); RSV PCR Negative (Negative)
[2023-09-05 14:01] LABS: Source Nasopharynx
[2023-09-05 14:20] LABS: BE (Venous) -22 mmol/L (-2-3); HCO3 (Venous) 9 mmol/L (23-28); O2 Sat (Venous) 76 %; TCO2 (Venous) 9 mmol/L (24-29); pCO2 (Venous) 31 mmHg (41-51); pO2 (Venous) 59 mmHg
[2023-09-05 14:23] LABS: pH (Venous) 7.04 (7.31-7.41)
--- NOTE | 2023-09-05 14:32 | DI.VRAD_ITS ---
PROCEDURE INFORMATION: Exam: CT Head Without Contrast Exam date and time: 09/05/2023 1:29 PM Age: 83 years old Clinical indication: Altered mental status/memory loss; Confusion or disorientation TECHNIQUE: Imaging protocol: Computed tomography of the head without contrast. Radiation optimization: All CT scans at this facility use at least one of these dose optimization techniques: automated exposure control; mA and/or kV adjustment per patient size (includes targeted exams where dose is matched to clinical indication); or iterative reconstruction. COMPARISON: CT HEAD WO 09/01/2023 10:45 AM FINDINGS: Brain: The ventricles, sulci are unchanged. There is mild central, cortical atrophy consistent with the patient's age. There is no new hemorrhage, mass or shift. There is no new large cortical or major vascular territory infarct. There is a small lacune noted posteriorly in the left lentiform nucleus abutting the posterior limb of the internal capsule also previously noted. There is a prominent right infra putaminal perivascular space. There are no new extra-axial collections. There is no new shift or herniation. Cerebral ventricles: Ventricular size is stable. There is no significant ventricular enlargement/hydrocephalus. Paranasal sinuses: There is no new sinus opacification or fluid level Mastoid air cells: No new mastoid opacification Orbital cavities: No new orbital abnormality. There are calcifications noted involving the posterior globe bilaterally also previously noted. Bones/joints: There is no new or acute bony abnormality Soft tissues: Subcutaneous soft tissues are unremarkable IMPRESSION: No new or acute findings on non-contrast CT of the head. Dictated and Authenticated by: Kim Cabezas MD. Ordering:NEYDA Gonzalez MD
--- NOTE | 2023-09-05 14:36 | DI.VRAD_ITS ---
PROCEDURE INFORMATION: Exam: CT Chest Without Contrast; Diagnostic Exam date and time: 09/05/2023 1:32 PM Age: 83 years old Clinical indication: Other: AMS, hypothermia TECHNIQUE: Imaging protocol: Diagnostic computed tomography of the chest without contrast. Radiation optimization: All CT scans at this facility use at least one of these dose optimization techniques: automated exposure control; mA and/or kV adjustment per patient size (includes targeted exams where dose is matched to clinical indication); or iterative reconstruction. COMPARISON: CT CHEST/ABD/PEL W 01/06/2022 12:57 PM FINDINGS: Lungs: There is minimal bibasilar atelectasis. Pleural spaces: Unremarkable. No pneumothorax. No pleural effusion. Heart: Unremarkable. No cardiomegaly. No pericardial effusion. Coronary arteries: There is coronary artery calcification. Lymph nodes: Unremarkable. No enlarged lymph nodes. Vasculature: Unremarkable. No aortic aneurysm. Bones/joints: Degenerative changes of the spine and scoliosis, without acute osseous abnormality. Soft tissues: Unremarkable. IMPRESSION: No acute abnormality. PROCEDURE INFORMATION: Exam: CT Abdomen And Pelvis Without Contrast Exam date and time: 09/05/2023 1:32 PM Age: 83 years old Clinical indication: Other: AMS, hypothermia TECHNIQUE: Imaging protocol: Computed tomography of the abdomen and pelvis without contrast. Radiation optimization: All CT scans at this facility use at least one of these dose optimization techniques: automated exposure control; mA and/or kV adjustment per patient size (includes targeted exams where dose is matched to clinical indication); or iterative reconstruction. COMPARISON: CT CHEST/ABD/PEL W 01/06/2022 12:57 PM FINDINGS: Liver: Normal. No mass. Gallbladder and bile ducts: There has been a cholecystectomy. Pancreas: Normal. No ductal dilation. Spleen: Normal. No splenomegaly. Adrenal glands: Normal. No mass. Kidneys and ureters: Atrophic kidneys. No hydronephrosis. Stomach and bowel: Unremarkable. No obstruction. No mucosal thickening. Appendix: No evidence of appendicitis. Intraperitoneal space: Unremarkable. No free air. No significant fluid collection. Vasculature: Unremarkable. No abdominal aortic aneurysm. Lymph nodes: Unremarkable. No enlarged lymph nodes. Urinary bladder: The bladder is decompressed by a Joseph catheter. Reproductive: Unremarkable as visualized. Bones/joints: Degenerative changes of the spine and scoliosis, without acute osseous abnormality. Soft tissues: There is a small fat-containing umbilical hernia. IMPRESSION: No acute abnormality. Additional findings as described. Dictated and Authenticated by: Barbra Cardenas MD. Ordering:NEYDA Gonzalez MD
[2023-09-05] MEDS: Lactated Ringers 1,000 ML 1000 ML IV (14:47)
[2023-09-05] MEDS: Sodium Bicarbonate 50 MEQ/50 ML SYR 100 MEQ IVP (14:49)
[2023-09-05 15:47] LABS: Troponin I 125 ng/L (<or=60)
--- NOTE | 2023-09-05 16:00 | RT.EKG_ITS ---
APPROVED REPORT Exam: Resting ECG Reason for Exam: hyperkalemia Patient Location: E HR:49 bpm ECG Measurements Heart Rate 49 AXIS MI 175 P -86 QRSd 116 QRS -51 QT 595 T -17 QTc 539 Conclusion Ectopic atrial bradycardia...abnormal P axis, V-rate< 60 Left anterior fascicular block...axis(240,-40), init forces inf Low voltage, precordial leads...precordial leads <1.0mV Probable lateral infarct, old...Q>35mS, abnormal ST-T, V5-6 I aVL Prolonged QT interval...QTc >500mS p waves present although inverted, QRS narrowing compared to prior, persistent left axis
[2023-09-05 16:13] LABS: BE (Venous) -19 mmol/L (-2-3); HCO3 (Venous) 9 mmol/L (23-28); O2 Sat (Venous) 99 %; TCO2 (Venous) 9 mmol/L (24-29); pCO2 (Venous) 23 mmHg (41-51); pH (Venous) 7.21 (7.31-7.41); pO2 (Venous) 137 mmHg
[2023-09-05 16:25] LABS: Anion Gap 19.3 mmol/L (3-11); BUN 41 mg/dL (7-18); CO2 10.7 mmol/L (21.0-32.0); CREATININE 3.1 mg/dL (0.55-1.02); Calcium 7.8 mg/dL (8.5-10.1); Chloride 105 mmol/L (98-107); Estimated GFR 14.38 (mL/min/1.73m2); Glucose 208 mg/dL (74-106); Potassium 5.9 mmol/L (3.5-5.1); Sodium 135 mmol/L (136-145)
--- NOTE | 2023-09-06 05:31 | NUR.NOTE ---
Positive Blood Culture result faxed to [facility] where patient was transferred to.Nursing Note:
--- NOTE | 2023-09-06 08:23 | W.EDPROG ---
Date of service: 09/06/23 Time of Service: 08:24 Medical Decision Making Patient had positive blood cultures. Patient had been transferred to [facility]. Results were faxed to [facility]. Discharge Plan Disposition Patient Disposition: Transfer-Acute Inpatient Care Specific Acute Inpt Facility: [facility] Condition: Serious Discharge Details Clinical Impression: RAFAEL (acute kidney injury), Hypothermia, Acute UTI, Hyperkalemia Primary Care Provider: Hakeem Wheeler ED Provider: Carlos Espinoza Home Meds and New Rx's Prescriptions: No Action lorazepam 0.5 mg tablet 0.5 mg PO BID PRN (Reason: anxiety) Qty: 60 0RF albuterol sulfate [Ventolin HFA] 90 mcg/actuation HFA aerosol inhaler 1 - 2 puff IH Q4H PRN (Reason: shortness of breath or wheezing) Qty: 8.5 0RF (DME) Aerochamber MV spacer See Dose Instructions .ROUTE .MEDSUPPLY Qty: 1 0RF Dose Instruction: As directed Rx Instructions: As directed furosemide 20 mg tablet 20 mg PO DAILY Qty: 90 3RF glipizide 5 mg tablet extended release 24hr 5 mg PO BID Qty: 180 4RF TEST STRIPS 1 EACH strip 1 ea Miscellaneous TID Qty: 300 4RF Rx Instructions: FOR ONE TOUCH ULTRA MINI Dx 250.02 Taking Lantus and Novolog acetaminophen [Tylenol Extra Strength] 500 MG tablet 2 tab PO Q4H PRN cpap 0RF (DME) lancets 1 EACH misc 1 ea Miscellaneous TID Qty: 300 4RF Rx Instructions: FOR ONE TOUCH ULTRA MINI GLUCOMETER Dx E11.9 Taking Lantus and Novolog simvastatin [Zocor] 40 mg tablet 40 mg PO HS Qty: 90 4RF omeprazole 20 mg capsule,delayed release(DR/EC) 20 mg PO BID Qty: 180 3RF metoprolol succinate 50 mg tablet extended release 24 hr 50 mg PO DAILY Qty: 90 3RF metformin 500 mg tablet 1,000 mg PO BID 90 Days Qty: 360 3RF Rx Instructions: NEW DOSE (DME) Blood Glucose Test Strip 1 ea Miscellaneous TID Qty: 400 12RF Rx Instructions: FOR_one touch METER. PT USES INSULIN. TESTS TID DIAGNOSIS CODE _E11.9 On insulin trazodone 100 mg tablet 100 mg PO HS Qty: 90 4RF fluoxetine 20 mg capsule 20 mg PO DAILY Qty: 90 4RF Eliquis 5 mg tablet 5 mg PO BID Qty: 180 3RF tolterodine [Detrol LA] 4 mg capsule,extended release 24hr 4 mg PO DAILY Qty: 90 3RF tizanidine 4 mg tablet 4 mg PO Q8H PRN (Reason: muscle spasticity) Qty: 90 3RF sennosides [Senna Lax] 8.6 mg tablet 8.6 - 17.2 mg PO BID PRN (Reason: constipation) Qty: 180 3RF losartan [Cozaar] 100 mg tablet 100 mg PO QAM Qty: 90 3RF multivitamin 1 EACH capsule 1 cap PO DAILY magnesium 250 mg tablet 250 mg PO DAILY Qty: 7 0RF meclizine 25 mg tablet 25 mg PO TID Qty: 10 0RF lidocaine [Lidocaine Pain Relief] 4 % adhesive patch,medicated 1 patch topical DAILY PRNQty: 10 0RF Discharge Data Discharge Date/Time-TO BE ENTERED AT DEPARTURE: 09/05/23 19:57
== END 2023-09-05 19:57 | disposition short-term general hospital (02) ==
PROVIDERS: Registered Nurse Emergency; Emergency Provider Emergency Medicine; PCP Nurse Practitioner Family
DX: N17.8 Other acute kidney failure (principal); T68.XXXA Hypothermia, initial encounter; X31.XXXA Exposure to excessive natural cold, initial encounter; N39.0 Urinary tract infection, site not specified; E87.5 Hyperkalemia; E83.51 Hypocalcemia; I44.7 Left bundle-branch block, unspecified; I48.91 Unspecified atrial fibrillation; I10 Essential (primary) hypertension; E11.9 Type 2 diabetes mellitus without complications; Z79.84 Long term (current) use of oral hypoglycemic drugs; Z79.01 Long term (current) use of anticoagulants
CPT/HCPCS: 00123; 36415; 36556; 51702; 71250; 76937; 80048; 80053; 80307; 82550; 82805; 82962; 83690; 86850; 86900; 86901; 87040; 87077; 87635; 87637; 93005; 94640; 96361; 96365; 96366; 96367; 96375; 99291; 70450; 71045; 74176; 80320; 80329; 81003; 81015; 83735; 83880; 84443; 84484; 85025; 85610; 85730; 87086; 87186; 93010; J2543; J7613